=== PATIENT | female | born 1945 | race Caucasian/White ===

== ENCOUNTER 2017-08-06 12:24 | Outpatient (CLI) | payer MEDICARE ==
--- NOTE | 2017-08-06 15:21 | ULT ---
BILATERAL LOWER EXTREMITY VENOUS DUPLEX EXAM: Technique: The veins of both lower extremities were evaluated with ultrasound and doppler. Color dop pler and spectral analysis performed on the deep veins. History: Lower extremity pain and edema. FINDINGS: Deep veins of both lower extremities show normal compression and blood flow. No evidence of DVT. IMPRESSION: Negative bilateral lower extremity venous duplex exam. POS: [facility]
--- NOTE | 2017-08-06 15:35 | ULT ---
BILATERAL LOWER EXTREMITY ARTERIAL DOPPLER STUDY: Technique: Ultrasound doppler study performed of the arteries of both lower extremities. Color doppl er with spectral analysis and velocity recordings obtained. History: Hyperlipidemia. Bilateral lower extremity pain. FINDINGS: RIGHT LOWER EXTREMITY: Common femoral artery and profunda femoral show a biphasic waveform with symmetric velocities. The right superficial femoral artery reveals a monophasic waveform throughout. Popliteal shows a monophasic waveform. The anterior tip shows a monophasic to biphasic waveform. There is monophasic waveform in the posterior tip and dorsal pedis artery on the right. LEFT LOWER EXTREMITY: There is a biphasic waveform throughout all arteries of the left lower extremity which symmetric jarret ocities. IMPRESSION: Evidence of significant arterial disease in the right lower extremity below the groin with monophasi c waveforms throughout. Suggest correlation with CT angio of the abdomen and pelvis and lower extrem ities. POS: [facility]
== END 2017-08-06 12:25 | disposition home or self-care (01) ==
LOC: ULT 12:24
PROVIDERS: ATTEND Nurse Practitioner Family
DX: M79.604 Pain in right leg (principal); M79.605 Pain in left leg; E78.5 Hyperlipidemia, unspecified; I10 Essential (primary) hypertension; Z72.0 Tobacco use; R94.31 Abnormal electrocardiogram [ECG] [EKG]; R00.1 Bradycardia, unspecified; G25.81 Restless legs syndrome; I77.89 Other specified disorders of arteries and arterioles
CPT/HCPCS: 93923; 93970

== ENCOUNTER 2017-10-23 09:41 | Outpatient (CLI) | payer MEDICARE | END 2017-10-23 09:42 | disposition home or self-care (01) | LOC: BICBD 09:41 | PROVIDERS: ATTEND Nurse Practitioner Family | DX: Z78.0 Asymptomatic menopausal state (principal); M85.851 Other specified disorders of bone density and structure, right thigh; M85.852 Other specified disorders of bone density and structure, left thigh | CPT/HCPCS: 77080 ==

== ENCOUNTER 2017-11-14 08:54 | Outpatient (CLI) | payer MEDICARE ==
[2017-11-14] MEDS ORDERED: Iopamidol 370 76% 100 ML VIAL ONE (16:35)
== END 2017-11-14 08:55 | disposition home or self-care (01) ==
LOC: BICCT 08:54
PROVIDERS: ATTEND Nurse Practitioner Family
DX: R05 Cough (principal); I25.10 Atherosclerotic heart disease of native coronary artery without angina pectoris; I77.810 Thoracic aortic ectasia; I70.0 Atherosclerosis of aorta; K57.10 Diverticulosis of small intestine without perforation or abscess without bleeding; Z72.0 Tobacco use
CPT/HCPCS: 71260

== ENCOUNTER 2018-04-16 15:36 | Emergency (ER) | payer MEDICARE ==
[2018-04-16] MEDS ORDERED: traMADol HCl 50 MG TAB ONE (17:01)
--- NOTE | 2018-04-16 17:43 | CT ---
CERVICAL SPINE CT SCAN WITHOUT IV CONTRAST: 04/16/18 HISTORY: 72-year-old female with history of neck pain without associated injury. Cervical spine CT scan without IV contrast is performed. Multiple disc osteophytosis and facet arthrosis evidence for significant spondylosis. There is minima l retrolisthesis of C4 on C5 with disc osteophytosis resulting in moderate canal stenosis. Mild canal stenosis at C5-C6. Moderate to severe multilevel bilateral foraminal stenosis, particularly at C4-C5 and C5-C6. No evidence for acute fracture or facet dislocation. IMPRESSION: Cervical spondylosis with canal stenosis at C4-C5 and C5-C6 with variable severity up to moderate to severe multilevel bilateral foraminal stenosis. No acute fracture or facet dislocation. If the patient has any radiculopathy or myelopathy symptoms, followup nonemergent MRI examination is recommended. POS: [facility]
== END 2018-04-16 18:40 | disposition home or self-care (01) ==
LOC: ERS 15:36
DX: M47.892 Other spondylosis, cervical region (principal); M48.02 Spinal stenosis, cervical region; E03.9 Hypothyroidism, unspecified; E78.5 Hyperlipidemia, unspecified; I10 Essential (primary) hypertension; F17.210 Nicotine dependence, cigarettes, uncomplicated; Z79.82 Long term (current) use of aspirin; Z79.899 Other long term (current) drug therapy
CPT/HCPCS: 72125

== ENCOUNTER 2018-04-29 12:21 | Outpatient (CLI) | payer MEDICARE | END 2018-04-29 12:22 | disposition home or self-care (01) | LOC: BICMRI 12:21 | PROVIDERS: ATTEND Nurse Practitioner Family | DX: S16.1XXA Strain of muscle, fascia and tendon at neck level, initial encounter (principal); M43.6 Torticollis; M62.838 Other muscle spasm; M51.24 Other intervertebral disc displacement, thoracic region; M46.92 Unspecified inflammatory spondylopathy, cervical region; M47.892 Other spondylosis, cervical region; M99.81 Other biomechanical lesions of cervical region | CPT/HCPCS: 72141 ==

== ENCOUNTER 2018-05-20 11:04 | Outpatient (CLI) | payer MEDICARE ==
--- NOTE | 2018-05-20 12:39 | RAD ---
CHEST 2 VIEWS: HISTORY: Preoperative exam. COMPARISON: None. FINDINGS: There is atherosclerosis of the aorta. Normal cardiac silhouette. The pulmonary vessels and hilum a re normal. Costophrenic angles are clear. No mass. No consolidation. No pneumothorax or osseous a bnormalities. IMPRESSION: Atherosclerosis. POS: [facility]
== END 2018-05-20 11:05 | disposition home or self-care (01) ==
LOC: RAD-FRANK 11:04
PROVIDERS: ATTEND Nurse Practitioner Family
DX: Z01.818 Encounter for other preprocedural examination (principal); F17.200 Nicotine dependence, unspecified, uncomplicated; M48.02 Spinal stenosis, cervical region; M51.24 Other intervertebral disc displacement, thoracic region; I10 Essential (primary) hypertension; I34.0 Nonrheumatic mitral (valve) insufficiency; R94.31 Abnormal electrocardiogram [ECG] [EKG]; I70.90 Unspecified atherosclerosis
CPT/HCPCS: 36415; 71046; 80053; 85025; 85610; 85730; 86900; 86901

== ENCOUNTER 2018-06-22 08:11 | Inpatient (IN) | payer MEDICARE ==
[2018-06-19 11:21] VITALS: BMI 23.6
[2018-06-22] MEDS ORDERED: CEFAZOLIN/Water 2 GM/20 ML SYRINGE ONE ×2 (09:49→13:25)
[2018-06-22 09:50] LABS: #Basophils 0.1 thou/uL (0.0-0.2); #Eosinphils 0.2 thou/uL (0.0-0.7); #Lymphocytes 1.7 thou/uL (1.20-3.40); #Monocytes 0.6 thou/uL (0.11-0.59); #Neutrophils 4.7 thou/uL (1.40-6.50); %Basophils 0.8 % (0.0-1.0); %Eosinophils 2.3 % (0.0-10.0); %Lymphocytes 23.7 % (21.0-51.0); %Monocytes 7.8 % (0.0-10.0); %Neutrophils 65.5 % (42.0-75.0); Hemoglobin 13.7 g/dL (12.0-16.0); Mean Corpuscular HGB CONC 32.9 g/dL (32.0-36.0); Mean Corpuscular Hemoglobin 30.2 pg (27.0-31.0); Mean Corpuscular Volume 91.8 fL (78.0-98.0); Mean Platelet Volume 8.5 fL (7.4-10.4); Platelet Count 344 thou/uL (130-400); Red Blood Cell (RBC) Count 4.53 mill/uL (4.20-5.40); White Blood Cell (WBC) Count 7.2 thou/uL (4.8-10.8)
[2018-06-22 10:10] LABS: Anion Gap 19 mmol/L (10-20); BUN (Urea Nitrogen) 17 mg/dL (9.8-20.1); Calc. Creatinine Clearance 53 mL/min (70-130); Calcium 10.5 mg/dL (7.8-10.44); Carbon Dioxide 25 mmol/L (23-31); Chloride 104 mmol/L (98-107); Estimated GFR-MDRD 64; Glucose 106 mg/dL (83-110); Potassium 3.6 mmol/L (3.5-5.1); Sodium 144 mmol/L (136-145)
[2018-06-22 10:14] LABS: PTT 34.2 SEC (22.9-36.1); Prothrombin Time 13.4 SEC (12.0-14.7)
[2018-06-22] MEDS ORDERED: Dexamethasone 20 MG/5 ML VIAL ONE (11:36)
[2018-06-22] MEDS ORDERED: Glycopyrrolate 0.2 MG/ML 5 ML SYRINGE ONE (11:36)
[2018-06-22] MEDS ORDERED: PROPOFOL 200 MG/20 ML VIAL ONE (11:36)
[2018-06-22] MEDS ORDERED: Metoclopramide HCl 10 MG/2 ML VIAL ONE (11:36)
[2018-06-22] MEDS ORDERED: Lidocaine 1% PF 5 ML VIAL ONE (11:36)
[2018-06-22] MEDS ORDERED: Ondansetron HCl/PF 4 MG/2 ML Vial ONE (11:36)
[2018-06-22] MEDS ORDERED: Fentanyl 100 MCG/2 ML VIAL ONE ×4 (11:50→15:11)
[2018-06-22] MEDS ORDERED: Sodium Chloride 0.9% 10 ML ONE (13:17)
[2018-06-22] MEDS ORDERED: Ondansetron HCl/PF 4 MG/2 ML Vial IVP PRN ×2 (14:49→15:17)
[2018-06-22] MEDS ORDERED: Ketorolac Tromethamine 30 MG/ML VIAL IVP PRN (14:49)
--- NOTE | 2018-06-22 15:07 | OP ---
DATE OF OPERATION: 06/22/2018 SURGEON: Erick Grimaldo M.D. SEAM PRESSER: Yana Garcia PROCEDURES PERFORMED: Anterior cervical discectomy C4-5 and C5-6, interbody arthrodesis, intraverteb ral biomechanical device, local morselized autograft, demineralized bone matrix, anterior titanium in strumentation C4-5 and C5-6. PROCEDURE IN DETAIL: The patient was brought into the operating room and intubated. We positioned t he patient on the table and using the fluoroscope tried to plan a trajectory to approach T1-2 and fou nd it to be 2 angled away from the clavicle, inferiorly to be adequately able to access from an anter ior approach. We therefore performed a standard approach to the C4-5 and C5-6 levels. These were id entified with x-ray. Anterior osteophytes were debrided. Distraction was placed between C4 and C6 a nd using the operating microscope and microdissection techniques, the disks were removed included the spinal cord completely decompressed. The bony endplates were then decorticated for the purpose of a rthrodesis and appropriately sized intravertebral biomechanical PEEK devices were brought into the fi eld, filled with demineralized bone matrix and local morselized autograft, and tapped into place secu rely at C4-5 and C5-6. Next, an anterior plate was brought in the field and secured to C5, and C6 us ing two 14 mm screws at each level. The wound was then extensively irrigated, immaculate hemostasis was secured, and the wound was closed in anatomic layers.
[2018-06-22] MEDS ORDERED: Mag-Al 1200 mg/1200 mg/30 ML UDCUP PO PRN (15:14)
[2018-06-22] MEDS ORDERED: HYDROcodone/Acetaminophen 10/325 mg Tablet PO PRN ×2 (15:14)
[2018-06-22] MEDS ORDERED: Promethazine HCl 25 MG/ML VIAL IM PRN (15:14)
[2018-06-22] MEDS ORDERED: Cyclobenzaprine 10 MG TAB PO PRN (15:14)
[2018-06-22] MEDS ORDERED: Promethazine HCl 12.5 MG SUPP PR PRN (15:14)
[2018-06-22] MEDS ORDERED: diphenhydrAMINE 50 MG/ML VIAL IVP PRN (15:14)
[2018-06-22] MEDS ORDERED: diphenhydrAMINE 25 MG CAP PO PRN (15:14)
[2018-06-22] MEDS ORDERED: Morphine 4 MG/ML Carpuject SLOW IVP PRN (15:14)
[2018-06-22] MEDS ORDERED: Promethazine 25 MG TAB PO PRN (15:14)
[2018-06-22] MEDS ORDERED: traMADol HCl 50 MG TAB PO PRN (15:14)
[2018-06-22] MEDS ORDERED: Milk Of Magnesia 30 ML UDCUP PO PRN (15:14)
[2018-06-22] MEDS ORDERED: Morphine 4 MG/ML VIAL SLOW IVP PRN (15:22)
--- NOTE | 2018-06-22 17:42 | CON ---
DATE OF CONSULTATION: 06/22/2018 PRIMARY CARE PHYSICIAN: Ms. Radha Alcaraz. REQUESTING PHYSICIAN: Erick Grimaldo M.D. REASON FOR CONSULTATION: Medical management, postop ACDF and laminectomy of the cervical/upper thora cic spine for management of hypertension, hyperlipidemia, moderate mitral regurg, peripheral vascular disease, and hypothyroidism. HISTORY OF PRESENT ILLNESS: Ms. Hinojosa is a 73-year-old white female with the above history who pr esents to the postsurgical cody status post anterior cervical diskectomy and fusion C4-5 and C5-6 int erbody arthrodesis and intervertebral biomechanical device, local morselized autograft, demineralized bone matrix, anterior titanium instrumentation C4-5 and C5-6. There were no noted intraoperative complications. Postoperatively, she is doing well and is on the f syed. We were asked to consult for medical management. She denies any fevers or chills, no chest pa in or shortness of breath. No nausea or vomiting. No diarrhea or constipation. No appetite present . Pain is fairly well controlled. PAST MEDICAL HISTORY: 1. Hypertension. 2. Hyperlipidemia. 3. Peripheral vascular disease. 4. Mitral valve regurgitation, moderate. 5. Hypothyroidism. 6. History of hepatitis 40 years ago. 7. Chronic neck and back pain. 8. Ongoing tobacco abuse. PAST SURGICAL HISTORY: 1. AFRO in the left leg on 01/2018 and into the right leg on 02/2018. 2. Bilateral intraocular lens insertion on 01/2011. 3. Low back surgery on 07/2012. 4. Hemorrhoidectomy on 07/2001. 5. Hysterectomy on 12/22/1972. 6. Cholecystectomy on 01/1970. HOME MEDICATIONS: 1. Norvasc 10 mg daily. 2. Aspirin 81 mg daily. 3. Lipitor 10 mg at bedtime. 4. Plavix 75 mg daily. 5. Gabapentin 600 mg p.o. at bedtime. 6. Gemfibrozil 600 mg p.o. b.i.d. 7. Levothyroxine 75 mcg daily. 8. Losartan 25 mg daily. 9. KCl 20 mEq p.o. at bedtime. 10. Tramadol 50 mg 1-2 tabs p.o. daily. 11. Maxzide 37.5/25 daily. ALLERGIES: NKDA. FAMILY HISTORY: Hypertension, stroke, and multiple cancers. SOCIAL HISTORY: She does smoke. Social alcohol. No IV drug history. REVIEW OF SYSTEMS: All systems reviewed and negative except stated as per HPI. PHYSICAL EXAMINATION: VITAL SIGNS: Temperature 98.0, pulse 67, blood pressure is 168/69, respiratory rate 18, satting 94% on room air. GENERAL: Awake, alert, oriented x3, well-developed, well-nourished, white female, appears in no acut e distress. She is somewhat somnolent. HEENT: Normocephalic, atraumatic. Pupils are equal, reactive bilaterally. Mucous membranes are will st. NECK: Not examined. She has anterior cervical dressing that is intact without any strike through. LUNGS: Clear to auscultation bilaterally. No wheezes, no rales or rhonchi with good air movement. Symmetrical chest excursion. CARDIOVASCULAR: Normal S1 and S2. No S3 or S4. Does have a holosystolic murmur best heard at the a pex. ABDOMEN: Soft, is nontender, nondistended, no mass or organomegaly. No rebound, rigidity or guardin g. EXTREMITIES: No signs of clubbing with trace pedal edema. SKIN: Warm, moist, and well perfused. She has no rashes or lesions. MUSCULOSKELETAL: Normal to inspection. Large joints appear normal. There is no evidence of inflamm ation or palpable effusions. NEUROLOGIC: Cranial nerves II-XII are grossly intact with no focal deficits and normal speech patter n. LABORATORY DATA: CBC showed a white count of 7.2, hemoglobin 13.7, hematocrit 41.5, and platelet cou nt 344,000. Normal differential. INR is 1.0. Chemistry profile shows sodium 144, potassium 3.6, chloride 104, bicarb 25, BUN 17, creatinine 0.87, glucose of 106, calcium slightly elevated at 10.5. ASSESSMENT AND PLAN: 1. Hypertension. 2. Hyperlipidemia. 3. Hypothyroidism. 4. Peripheral vascular disease. 5. Peripheral neuropathy. Continue home antihypertensives, pain management per the Neurosurgical Team. We will hold off on asp irin and Plavix for the time being until the Neurosurgery feels like it safe to restart this. We moustapha l continue her thyroid medication. Follow along with you.
[2018-06-22] MEDS: tiZANidine HCl 4 MG TAB PO PRN (17:58)
[2018-06-22] MEDS: Gemfibrozil 600 MG TAB PO SCH (17:59)
[2018-06-22] MEDS: Sodium Chloride 0.9% 1,000 ML IV SCH (18:15)
[2018-06-22] MEDS: traMADol HCl 50 MG TAB PO PRN (18:39)
[2018-06-22] MEDS ORDERED: Atorvastatin Calcium 10 MG TAB PO SCH (21:00)
[2018-06-22] MEDS ORDERED: Gabapentin 300 MG CAP PO SCH (21:00)
[2018-06-22] MEDS ORDERED: Potassium Chloride 20 MEQ TAB PO SCH (21:00)
[2018-06-22] MEDS: CEFAZOLIN/Water 2 GM/20 ML SYRINGE SLOW IVP SCH (21:56)
[2018-06-23] MEDS: tiZANidine HCl 4 MG TAB PO PRN ×2 (03:03→10:00)
[2018-06-23] MEDS: Sodium Chloride 0.9% 1,000 ML IV SCH (05:35)
[2018-06-23] MEDS: CEFAZOLIN/Water 2 GM/20 ML SYRINGE SLOW IVP SCH (05:35)
[2018-06-23] MEDS ORDERED: Levothyroxine Sodium 75 MCG TAB PO SCH (06:00)
--- NOTE | 2018-06-23 07:02 | DIS ---
DATE OF ADMISSION: 06/22/2018 DATE OF DISCHARGE: 06/23/2018 ATTENDING PHYSICIAN: Dr. Erick Grimaldo. HOSPITAL COURSE: The patient is a 73-year-old female known to us for evaluation for neck discomfort and balance difficulty. She was found to have significant degenerative changes in cervical stenosis at C4-C6 and also herniated disk and T1-T2. She underwent C4-C6 ACDF on 06/22/2018. We considered also T1-T2 ACDF; however, this was unable to be completed at the same time. Following her surgery, her pain was well controlled with p.o. medications, she was tolerating regular diet, and she was voiding appropriately. She has been ambulatory throughout the department. She is comfortable, NAD 5/5 strength thoughout. Sensation intact to light touch. No reflex asx. Her dressing is dry and her incision is soft. We will plan to dismiss to home. I will plan to follow up the patient with approximately 2 weeks. I have provided her with prescriptions for Tylenol #4 and Zanaflex. I have discussed home care precautions. Please reach out to Neurosurgery for additional questions or concerns. BOBBY
[2018-06-23] MEDS: Gemfibrozil 600 MG TAB PO SCH (07:07)
[2018-06-23 08:01] VITALS: BP 132/63; TEMP 97.9
[2018-06-23] MEDS: traMADol HCl 50 MG TAB PO PRN (08:41)
[2018-06-23] MEDS ORDERED: Losartan 25 MG TAB PO SCH (09:00)
[2018-06-23] MEDS ORDERED: Amlodipine 10 MG TAB PO SCH (09:00)
[2018-06-23] MEDS ORDERED: Triamterene/Hydrochlorothiazide 37.5 mg/25 mg Tablet PO SCH (09:00)
--- NOTE | 2018-06-23 10:44 | PDOC.PN ---
- Subjective Encounter Start Date: 06/23/18 Encounter Start Time: 10:43 no events, vitals stable, going home today, no new complaints denies f/C, no N/V/d/C, no Cp or sOB all systems reviewed and neg x as above - Objective Resuscitation Status: Resuscitation Status FULL:Full Resuscitation MAR Reviewed: Yes Vital Signs & Weight: Vital Signs (12 hours) Temp Pulse Resp BP BP Pulse Ox 06/23/18 08:40 63 132/63 06/23/18 07:59 97.9 F 63 16 132/63 93 L 06/23/18 04:22 97.6 F 61 18 137/67 92 L 06/23/18 00:27 97.7 F 73 18 169/70 H 95 Weight Weight 129 lb I&O: 06/22/18 06/23/18 06/24/18 06:59 06:59 06:59 Intake Total 300 Balance 300 Result Diagrams: 06/22/18 09:37 06/22/18 09:37 Phys Exam - Physical Examination Constitutional: NAD HEENT: PERRLA, moist MMs, sclera anicteric, oral pharynx no lesions Neck: no nodes, no JVD, supple, full ROM Respiratory: no wheezing, no rales, no rhonchi, clear to auscultation bilateral Cardiovascular: RRR, no significant murmur, no rub Gastrointestinal: soft, non-tender, no distention, positive bowel sounds Musculoskeletal: no edema Neurological: non-focal, normal sensation, moves all 4 limbs Lymphatic: no nodes Psychiatric: normal affect, A&O x 3 Skin: no rash, normal turgor, cap refill <2 seconds Dx/Plan (1) HTN (hypertension) Code(s): I10 - ESSENTIAL (PRIMARY) HYPERTENSION Status: Chronic Qualifiers: Hypertension type: essential hypertension Qualified Code(s): I10 - Essential (primary) hypertension (2) PVD (peripheral vascular disease) Code(s): I73.9 - PERIPHERAL VASCULAR DISEASE, UNSPECIFIED Status: Chronic (3) Hypothyroidism Code(s): E03.9 - HYPOTHYROIDISM, UNSPECIFIED Status: Chronic Qualifiers: Hypothyroidism type: acquired Qualified Code(s): E03.9 - Hypothyroidism, unspecified (4) Cervical disc disease Code(s): M50.90 - CERVICAL DISC DISORDER, UNSP, UNSPECIFIED CERVICAL REGION Status: Chronic - Plan * . stable medically, resume home meds. discharge per primary team
--- NOTE | 2018-06-28 14:26 | EKG ---
Test Reason : PREOP Blood Pressure : / mmHG Vent. Rate : 058 BPM Atrial Rate : 058 BPM P-R Int : 192 ms QRS Dur : 096 ms QT Int : 456 ms P-R-T Axes : 052 -03 155 degrees QTc Int : 447 ms Sinus bradycardia Left ventricular hypertrophy with repolarization abnormality Abnormal ECG When compared with ECG of 06-JUL-2010 09:00, No significant change was found Confirmed by MICHAEL DOYLE (2) on 06/28/2018 2:25:22 PM Referred By: ALAINA Confirmed By:MICHAEL DOYLE
== END 2018-06-23 11:30 | disposition home or self-care (01) | DRG 473 ==
LOC: SURG A 08:48
PROVIDERS: ADMIT Neurological Surgery; ATTEND Neurological Surgery
PROC: 0RG20A0 Fusion of 2 or more Cervical Vertebral Joints with Interbody Fusion Device, Anterior Approach, Anterior Column, Open Approach (ICD-10-PCS; principal; 2018-06-22)
PROC: 0RB30ZZ Excision of Cervical Vertebral Disc, Open Approach (ICD-10-PCS; 2018-06-22)
DX: M48.02 Spinal stenosis, cervical region (principal); M51.24 Other intervertebral disc displacement, thoracic region; I10 Essential (primary) hypertension; E78.5 Hyperlipidemia, unspecified; I34.0 Nonrheumatic mitral (valve) insufficiency; I73.9 Peripheral vascular disease, unspecified; E03.9 Hypothyroidism, unspecified; G89.29 Other chronic pain; Z72.0 Tobacco use; Z90.49 Acquired absence of other specified parts of digestive tract; Z90.710 Acquired absence of both cervix and uterus; Z79.82 Long term (current) use of aspirin; Z79.02 Long term (current) use of antithrombotics/antiplatelets; G62.9 Polyneuropathy, unspecified
CPT/HCPCS: 36415; 76001; 80048; 85025; 85610; 85730; 93005; 93010; A4216; C1713; C1776; J0131; J1100; J2001; J2405; J2704; J2765; J3010; J3490

== ENCOUNTER 2018-07-04 19:18 | Inpatient (IN) | payer MEDICARE ==
[2018-07-04 20:09] LABS: #Eosinphils 0.1 thou/uL (0.0-0.7); #Lymphocytes 2.5 thou/uL (1.20-3.40); #Monocytes 1.2 thou/uL (0.11-0.59); #Neutrophils 15.7 thou/uL (1.40-6.50); %Basophils 0.2 % (0.0-1.0); %Eosinophils 0.7 % (0.0-10.0); %Lymphocytes 12.8 % (21.0-51.0); %Monocytes 6.3 % (0.0-10.0); %Neutrophils 80.1 % (42.0-75.0); Hemoglobin 14.7 g/dL (12.0-16.0); Mean Corpuscular HGB CONC 33.3 g/dL (32.0-36.0); Mean Corpuscular Hemoglobin 29.9 pg (27.0-31.0); Mean Corpuscular Volume 89.6 fL (78.0-98.0); Mean Platelet Volume 8.4 fL (7.4-10.4); Platelet Count 465 thou/uL (130-400); Red Blood Cell (RBC) Count 4.91 mill/uL (4.20-5.40); White Blood Cell (WBC) Count 19.6 thou/uL (4.8-10.8)
--- NOTE | 2018-07-04 20:26 | RAD ---
RADIOGRAPH CHEST 2 VIEWS: 07/04/18 HISTORY: 73-year-old female status post acute chest trauma from fall. FINDINGS: There is no air space density, pulmonary edema, pleural effusion, pneumothorax, or cardiomegaly. IMPRESSION: No acute cardiopulmonary findings. chemo [] POS: [facility]
[2018-07-04 20:31] LABS: Magnesium 2.5 mg/dL (1.6-2.6)
[2018-07-04 20:33] LABS: ALT (SGPT) 10 U/L (8-55); AST (SGOT) 25 U/L (5-34); Albumin 4.2 g/dL (3.4-4.8); Alkaline Phosphatase 153 U/L (40-150); Anion Gap 18 mmol/L (10-20); BUN (Urea Nitrogen) 52 mg/dL (9.8-20.1); Bilirubin, Total 0.4 mg/dL (0.2-1.2); CK (CPK) 49 U/L (29-168); Calc. Creatinine Clearance 0 mL/min (70-130); Calcium 9.7 mg/dL (7.8-10.44); Carbon Dioxide 28 mmol/L (23-31); Chloride 96 mmol/L (98-107); Estimated GFR-MDRD 29; Globulin 3.7 g/dL (2.4-3.5); Glucose 115 mg/dL (83-110); Protein, Total 7.9 g/dL (6.0-8.3); Sodium 139 mmol/L (136-145)
[2018-07-04] MEDS ORDERED: Meclizine HCl 25 MG TAB ONE (20:35)
[2018-07-04] MEDS ORDERED: Fentanyl 100 MCG/2 ML VIAL ONE (20:35)
[2018-07-04 20:37] LABS: Troponin I 0.109 ng/mL (< 0.028)
[2018-07-04] MEDS ORDERED: Magnesium Sulfate 2 GM in Sodium Chloride 0.9% 100 ML IVPB SCH (21:15)
[2018-07-04] MEDS ORDERED: Enoxaparin Sodium 60 MG/0.6 ML SYRINGE ONE (21:24)
[2018-07-04] MEDS ORDERED: Potassium Chloride 20 MEQ TAB ONE (21:24)
--- NOTE | 2018-07-04 21:47 | CT ---
CT BRAIN WITHOUT CONTRAST: 07/04/18 HISTORY: Fall, syncope. FINDINGS: No evidence of acute infarct, hemorrhage, midline shift or abnormal extra-axial fluid collections are seen. The ventricular size is appropriate and the basilar cisterns patent. A small focal hypodensity in the right caudate head is likely an old infarct. The bony calvarium is intact. The visualized par anasal sinuses and mastoid air cells are well aerated. IMPRESSION: No CT evidence of acute intracranial process. POS: [facility]
--- NOTE | 2018-07-04 22:15 | CT ---
CT NECK SOFT TISSUES NONCONTRAST 07/04/18 at 9:36 p.m. HISTORY: 73-year-old female with dysphagia. Rule out postoperative abscess. FINDINGS: This study was performed without IV contrast, because of low GFR of 29. Lack of IV contrast significa ntly decreases the sensitivity for the detection of abscess. There is ACDF hardware at C4-5-6. There is mild prevertebral soft tissue stranding and edema. In the right paraesophageal/retroesophageal re gion at the level of the esophagopharyngeal junction at the T6-7 junction, there is ill-defined fluid or soft tissue density material, containing gas (axial images 69 through 71 of 100, series 2). The l arynx is unremarkable. Within the limitations of a noncontrast scan, no gross pathology is identified involving the parapharyngeal, submandibular, posterior cervical, parotid, and manager instrumentation, spaces. Th ere is heavy atherosclerotic calcification of the bilateral carotid bulbs. IMPRESSION: 1. Status post recent anterior cervical discectomy and fusion, with hardware. 2. Small collection of fluid with gas in the space between the right side of the pharyngoesophag eal junction and the C7-T1 vertebral bodies. This is presumably in the path of the surgical approach for the ACDF. This soon after surgery, it is very difficult to determine whether this is an expected normal small postoperative hematoma and residual gas, or represents an abscess. POS: [facility]
[2018-07-04] MEDS ORDERED: Ondansetron HCl/PF 4 MG/2 ML Vial IVP PRN (23:08)
[2018-07-04 23:17] LABS: Troponin I 0.092 ng/mL (< 0.028)
[2018-07-05] MEDS: Sodium Chloride 0.9% 1,000 ML IV SCH ×2 (00:14→13:47)
[2018-07-05] MEDS ORDERED: traMADol HCl 50 MG TAB PO PRN (02:12)
[2018-07-05 02:29] LABS: Troponin I 0.069 ng/mL (< 0.028)
[2018-07-05] MEDS ORDERED: Gabapentin 300 MG CAP PO SCH (03:00)
[2018-07-05] MEDS: Acetaminophen 325 MG TAB PO PRN ×2 (03:44→15:18)
[2018-07-05 05:17] LABS: #Basophils 0.1 thou/uL (0.0-0.2); #Eosinphils 0.2 thou/uL (0.0-0.7); #Lymphocytes 2.6 thou/uL (1.20-3.40); #Monocytes 0.9 thou/uL (0.11-0.59); #Neutrophils 9.7 thou/uL (1.40-6.50); %Basophils 0.4 % (0.0-1.0); %Eosinophils 1.3 % (0.0-10.0); %Lymphocytes 19.4 % (21.0-51.0); %Monocytes 6.8 % (0.0-10.0); %Neutrophils 72.1 % (42.0-75.0); Hemoglobin 12.3 g/dL (12.0-16.0); Mean Corpuscular Hemoglobin 29.8 pg (27.0-31.0); Mean Corpuscular Volume 90.3 fL (78.0-98.0); Mean Platelet Volume 8.4 fL (7.4-10.4); Platelet Count 349 thou/uL (130-400); RBC Distribution Width 13.9 % (11.5-14.5); Red Blood Cell (RBC) Count 4.13 mill/uL (4.20-5.40); White Blood Cell (WBC) Count 13.5 thou/uL (4.8-10.8)
[2018-07-05 05:36] LABS: Anion Gap 13 mmol/L (10-20); BUN (Urea Nitrogen) 42 mg/dL (9.8-20.1); Calc. Creatinine Clearance 43 mL/min (70-130); Calcium 8.5 mg/dL (7.8-10.44); Carbon Dioxide 28 mmol/L (23-31); Chloride 100 mmol/L (98-107); Estimated GFR-MDRD 53; Glucose 107 mg/dL (83-110); Sodium 138 mmol/L (136-145)
[2018-07-05 05:44] LABS: Potassium 2.8 mmol/L (3.5-5.1)
[2018-07-05] MEDS: Levothyroxine Sodium 75 MCG TAB PO SCH (06:40)
[2018-07-05] MEDS: Potassium Chloride 20 MEQ TAB PO SCH ×3 (06:41→20:14)
[2018-07-05] MEDS ORDERED: Aspirin 325 MG TAB PO SCH (08:00)
[2018-07-05] MEDS: Gemfibrozil 600 MG TAB PO SCH ×2 (09:41→17:52)
[2018-07-05] MEDS: Calcium Carbonate + Vit D 1 TAB PO SCH (09:42)
[2018-07-05] MEDS: Amlodipine 5 MG TAB PO SCH (09:42)
[2018-07-05] MEDS: Losartan 25 MG TAB PO SCH (09:42)
[2018-07-05] MEDS: Fish Oil 1,000 MG CAP PO SCH (09:42)
[2018-07-05] MEDS: Triamterene/Hydrochlorothiazide 37.5 mg/25 mg Tablet PO SCH (09:42)
[2018-07-05] MEDS: Ubidecarenone 50 MG CAP PO SCH (09:42)
--- NOTE | 2018-07-05 09:43 | CON ---
DATE OF CONSULTATION: 07/05/2018 REASON FOR CONSULTATION: Syncope. PRIMARY CUSHION WORKER: Clark Hazel M.D. HISTORY OF PRESENT ILLNESS: Ms. Hinojosa is a very pleasant 73-year-old white female, who comes to [facility] for syncope. She is very well known to myself. She has had a full evaluation of her hea rt. She has had a heart catheterization that showed only mild coronary artery disease and she does h ave significant peripheral vascular disease with intervention more recently to the legs. She comes i n as she had neck surgery about [address] Grimaldo, and since her surgery, she has had a l ot of dysphagia. It is common to have dysphagia after this type of surgery after discussion with Osvaldo tucker and this is not something unexpected, but she tells me that for the last 7 or 8 days and sh e has not really been able to keep much of anything down. She has also been a little bit constipated in the last few days, but this has resolved since. She said she was very lightheaded, felt dizzy, a nd fell forward and landed on her chest. She did not hit her head. She is not sure of what exactly happened. She feels she may have passed out, but is not sure. She also has noticed some fullness fo r years since the surgery. PAST MEDICAL HISTORY: 1. Hypertension. 2. Hyperlipidemia. 3. Peripheral vascular disease. 4. Moderate MR. 5. Hypothyroidism. 6. Hepatitis at 40 years old. 7. Chronic neck and back pain. 8. Tobacco abuse. 9. Mild coronary arteries. PAST SURGICAL HISTORY: 1. Left leg intervention in January of this year and right leg in February of this year. 2. Bilateral intraocular lens insertion in 2010. 3. Back surgery. 4. Hemorrhoidectomy. 5. Hysterectomy. 6. Cholecystectomy. OUTPATIENT MEDICATIONS: Include: 1. Gabapentin. 2. Tramadol. 3. Co-Q10. 4. Calcium/vitamin D. 5. Fish oil. 6. Triamterene/hydrochlorothiazide 37.5/25 mg daily. 7. Potassium chloride 20 mEq at bedtime. 8. Cozaar 25 mg a day. 9. Levothyroxine 75 mcg a day. 10. Gemfibrozil 600 mg b.i.d. 11. Atorvastatin 10 mg at bedtime. 12. Amlodipine 5 mg a day. FAMILY HISTORY: Noncontributory. SOCIAL HISTORY: Continues to smoke, social alcohol use, no drug use. ALLERGIES: No known drug allergies. REVIEW OF SYSTEMS: A 12-point review of systems was done and is all negative unless stated in the hi story of present illness. PHYSICAL EXAMINATION: VITAL SIGNS: Temperature 98.2, pulse 54, respiratory rate 16, satting 98% on room air, blood pressur e 124/58. GENERAL: Awake, alert, oriented x3, in no distress. HEENT: Normocephalic, atraumatic. NECK: Supple. LUNGS: Clear. CARDIOVASCULAR: S1 and S2, no S3 or S4. There is a very soft holosystolic murmur at the apex. ABDOMEN: Soft and positive bowel sounds. EXTREMITIES: No edema. SKIN: Warm and dry. LABORATORY WORK: Reviewed. CBC with a white count of 19 on arrival and down to 13 now, hemoglobin o f 14 and down to 12, hematocrit of 37, platelet count of 349. Coags: D-dimer was a little bit high. Chemistry with a potassium of 3.0, down to 2.8. Troponin is in the indeterminate range at 0.10, 0. 09, 0.06. BNP was 386. Creatinine was 1.72, and after IV fluids, down to 1.02. CT of the neck and brain were unremarkable. Her recent cervical diskectomy and fusion are seen with hardware. There is a small collection of fluid with gas in the space between the right side of the p harynx-esophageal junction and the C7-T1 vertebral bodies. ASSESSMENT AND PLAN: 1. Syncope: Most likely, related to her dysphagia and not being able to keep anything down for the last week. Most likely, she is dehydrated from this. I would give her IV fluids. Echocardiogram is actually being done as I am standing there and she has got a normal left ventricular function, which is the same it was before on her last echo. I would continue IV fluids, evaluate her for dysphagia, as this may recur if dysphagia is not resolved. 2. PVD, stable at this time. 3. Coronary artery disease, only mild on most recent heart catheterization. 4. Recent cervical neck surgery. Thank you for letting us to participate in the care of your patient. We will follow.
--- NOTE | 2018-07-05 10:14 | PDOC.PN ---
- Subjective Encounter Start Date: 07/05/18 Encounter Start Time: 07:20 Pt seen for followup re: syncope. Denies chest pain, shortness of breath, fevers or chills. - Objective Resuscitation Status: Resuscitation Status FULL:Full Resuscitation Vital Signs & Weight: Vital Signs (12 hours) Temp Pulse Resp BP Pulse Ox 07/05/18 07:50 98.2 F 54 L 16 124/58 L 98 07/05/18 03:35 98.1 F 54 L 16 119/58 L 94 L 07/04/18 23:40 98.0 F 55 L 16 116/56 L 96 Weight Weight 122 lb 7 oz I&O: 07/04/18 07/05/18 07/06/18 06:59 06:59 06:59 Intake Total 1170 Output Total 300 Balance 870 Result Diagrams: 07/05/18 05:01 07/05/18 05:01 Phys Exam - Physical Examination Constitutional: NAD HEENT: moist MMs, sclera anicteric, oral pharynx no lesions, 2+ tonsils Neck: no nodes, no JVD, supple, full ROM Respiratory: no wheezing, no rales, no rhonchi, clear to auscultation bilateral Cardiovascular: RRR, no rub S1, S2 Gastrointestinal: soft, non-tender, no distention, positive bowel sounds Neurological: moves all 4 limbs Psychiatric: normal affect, A&O x 3 Dx/Plan (1) Syncope Code(s): R55 - SYNCOPE AND COLLAPSE Status: Acute Comment: Continue to monitor on telemetry. CTA to r/o PE. Check urinalysis to r/o infection. Check orthostatic vitals. (2) Hypokalemia Code(s): E87.6 - HYPOKALEMIA Status: Acute Comment: replace potassium, recheck (3) HTN (hypertension) Code(s): I10 - ESSENTIAL (PRIMARY) HYPERTENSION Status: Chronic Qualifiers: Hypertension type: essential hypertension Qualified Code(s): I10 - Essential (primary) hypertension Comment: controlled (4) Hypothyroidism Code(s): E03.9 - HYPOTHYROIDISM, UNSPECIFIED Status: Chronic Qualifiers: Hypothyroidism type: acquired Qualified Code(s): E03.9 - Hypothyroidism, unspecified Comment: check TSH, continue synthroid (5) JODI (acute kidney injury) Code(s): N17.9 - ACUTE KIDNEY FAILURE, UNSPECIFIED Status: Resolved - Plan * . recent surgery by neurosurgery service, no evidence of surgical site infection per neurosurgery service. Review of Systems - Review of Systems Constitutional: negative: fever, chills, sweats, weakness, malaise Respiratory: negative: Cough, Shortness of Breath, SOB with Excertion, Pleuritic Pain, Wheezing Cardiovascular: negative: chest pain, palpitations, orthopnea, paroxysmal nocturnal dyspnea, edema, light headedness Gastrointestinal: Other (difficulty swallowing). negative: Nausea, Vomiting, Abdominal Pain, Diarrhea, Constipation, Melena, Hematochezia Genitourinary: negative: Dysuria, Frequency, Incontinence, Hematuria, Retention - Medications/Allergies Allergies/Adverse Reactions: Allergies Allergy/AdvReac Type Severity Reaction Status Date / Time acetaminophen [From [place]] Allergy Verified 07/05/18 00:00 hydrocodone [From [place]] Allergy Verified 07/05/18 00:00 Medications: Current Medications Acetaminophen (Tylenol) 650 mg PO Q4H PRN PRN Reason: Headache/Fever or Pain Last Admin: 07/05/18 03:44 Dose: 650 mg Amlodipine Besylate (Norvasc) 5 mg PO DAILY [facility] Last Admin: 07/05/18 09:42 Dose: 5 mg Aspirin (Aspirin) 325 mg PO QAM-WM [facility] Stop: 07/05/18 12:24 Last Admin: 07/05/18 09:41 Dose: 325 mg Atorvastatin Calcium (Lipitor) 10 mg PO [facility] Calcium/Vitamin D (Caltrate 600 + Vit D) 1 tab PO DAILY [facility] Last Admin: 07/05/18 09:42 Dose: 1 tab Coenzyme Q10 (Coenzyme Q10) 100 mg PO DAILY [facility] Last Admin: 07/05/18 09:42 Dose: 100 mg Fish Oil (Fish Oil) 1,000 mg PO DAILY [facility] Last Admin: 07/05/18 09:42 Dose: 1,000 mg Gabapentin (Neurontin) 600 mg PO [facility] Gemfibrozil (Lopid) 600 mg PO BID-AC [facility] Last Admin: 07/05/18 09:41 Dose: 600 mg Sodium Chloride (Normal Saline 0.9%) 1,000 mls @ 75 mls/hr IV .[id number] [facility] Last Admin: 07/05/18 00:14 Dose: 1,000 mls Levothyroxine Sodium (Synthroid) 75 mcg PO 0600 [facility] Last Admin: 07/05/18 06:40 Dose: 75 mcg Losartan Potassium (Cozaar) 25 mg PO DAILY [facility] Last Admin: 07/05/18 09:42 Dose: 25 mg Ondansetron HCl (Zofran) 4 mg IVP Q6H PRN PRN Reason: Nausea/Vomiting Potassium Chloride (K-Dur) 20 meq PO HS [facility] Sodium Chloride (Flush - Normal Saline) 10 ml IVF PRN PRN PRN Reason: Saline Flush Tramadol HCl (Ultram) 50 mg PO BID PRN PRN Reason: Pain 4-6 Triamterene/HCTZ (Maxzide-25) 1 tab PO QAM [facility] Last Admin: 07/05/18 09:42 Dose: 1 tab
[2018-07-05] MEDS ORDERED: ISOVUE-370 76%-LOCM 1 ML ONE (11:11)
--- NOTE | 2018-07-05 11:55 | CT ---
CT PULMONARY ANGIOGRAM WITH IV CONTRAST AND 3D POSTPROCESSING: Date: 07/05/18 HISTORY: Chest pain. Difficulty breathing. FINDINGS: There is good contrast opacification of the pulmonary arterial vasculature without filling defects to suggest pulmonary embolism. The thoracic aorta is well opacified without aneurysm or dissection. No pleural or pericardial effusions are seen. There are dependent changes in the lung bases. No pneumoth oraces or lobar consolidation are identified. No pulmonary nodules or masses seen. There are degenera tive changes in the spine. IMPRESSION: No CT evidence of pulmonary embolism. POS: [facility]
[2018-07-05 13:18] LABS: Bilirubin Negative (Negative); Blood, Urine Negative (Negative); Clarity CLEAR (Clear); Glucose, Urine (Dipstick) Negative (Negative); Leukocyte Negative (Negative); Nitrite Negative (Negative); Protein, Urine (Dipstick) Negative (Neg-Trace); Specific Gravity, Urine 1.034 (1.002-1.036); pH, Urine 6.5 (5.0-9.0)
[2018-07-05] MEDS: traMADol HCl 50 MG TAB PO PRN (15:18)
[2018-07-05] MEDS ORDERED: Meclizine HCl 25 MG TAB PO PRN (17:36)
[2018-07-05] MEDS: Morphine 2 MG/ML SYRINGE SLOW IVP PRN (17:53)
[2018-07-05] MEDS: Atorvastatin Calcium 10 MG TAB PO SCH (20:13)
[2018-07-05] MEDS: Gabapentin 300 MG CAP PO SCH (20:14)
[2018-07-06] MEDS ORDERED: Docusate 100 MG CAP PO PRN (00:46)
[2018-07-06] MEDS: Morphine 2 MG/ML SYRINGE SLOW IVP PRN ×3 (01:33→20:16)
[2018-07-06 05:10] LABS: #Eosinphils 0.2 thou/uL (0.0-0.7); #Monocytes 0.7 thou/uL (0.11-0.59); %Basophils 0.2 % (0.0-1.0); %Eosinophils 2.2 % (0.0-10.0); %Lymphocytes 22.7 % (21.0-51.0); %Neutrophils 66.9 % (42.0-75.0); Mean Corpuscular HGB CONC 31.9 g/dL (32.0-36.0); Mean Corpuscular Hemoglobin 29.4 pg (27.0-31.0); Mean Platelet Volume 8.6 fL (7.4-10.4); Platelet Count 268 thou/uL (130-400); RBC Distribution Width 13.9 % (11.5-14.5); Red Blood Cell (RBC) Count 3.75 mill/uL (4.20-5.40); White Blood Cell (WBC) Count 8.9 thou/uL (4.8-10.8)
[2018-07-06 05:27] LABS: Anion Gap 11 mmol/L (10-20); BUN (Urea Nitrogen) 18 mg/dL (9.8-20.1); Calc. Creatinine Clearance 62 mL/min (70-130); Calcium 8.2 mg/dL (7.8-10.44); Carbon Dioxide 27 mmol/L (23-31); Chloride 103 mmol/L (98-107); Estimated GFR-MDRD 81; Glucose 82 mg/dL (83-110); Sodium 138 mmol/L (136-145)
[2018-07-06 05:29] LABS: Potassium 2.9 mmol/L (3.5-5.1)
[2018-07-06] MEDS: Sodium Chloride 0.9% 1,000 ML IV SCH ×2 (05:50→19:07)
[2018-07-06] MEDS: Levothyroxine Sodium 75 MCG TAB PO SCH (05:50)
[2018-07-06] MEDS: Potassium Chloride 20 MEQ TAB PO SCH ×3 (06:46→20:11)
[2018-07-06] MEDS: Gemfibrozil 600 MG TAB PO SCH ×3 (08:14→16:25)
[2018-07-06] MEDS: Calcium Carbonate + Vit D 1 TAB PO SCH (08:14)
[2018-07-06] MEDS: Amlodipine 5 MG TAB PO SCH (08:14)
[2018-07-06] MEDS: Fish Oil 1,000 MG CAP PO SCH (08:15)
[2018-07-06] MEDS: Losartan 25 MG TAB PO SCH (08:15)
[2018-07-06] MEDS: Triamterene/Hydrochlorothiazide 37.5 mg/25 mg Tablet PO SCH (08:15)
[2018-07-06] MEDS: Ubidecarenone 50 MG CAP PO SCH (08:15)
--- NOTE | 2018-07-06 10:18 | HP ---
PRIMARY CARE PHYSICIAN: ANGELINE Amos. ENGINEERING INSPECTION ASSISTANT: Dr. Hazel. CODE STATUS: FULL CODE. TIME OF EVALUATION: 10:30 p.m. CHIEF COMPLAINT: Syncope. HISTORY OF PRESENT ILLNESS: This is a 73-year-old female patient with past medical history of hypoth yroidism, hyperlipidemia, hypertension, came to the hospital after having an episode of syncope, she does not remember much of what happened, she reported feeling lightheaded and dizziness and then pass ing out, symptoms were severe, no clear triggers, no alleviating factors. The patient improved by he rself. The patient, of note, has a history of recent surgery with Dr. Grimaldo, and since then has h ad some trouble swallowing, associated with ear pain, weight loss, and dizzy spells. REVIEW OF SYSTEMS: Constitutional: No fever or chills. The patient reported generalized weakness. Respiratory: No cough, sputum production or shortness of breath. Cardiovascular: No chest pain, p alpitations. Gastrointestinal: The patient had difficulty swallowing. No nausea, no vomiting, diar felisa or abdominal pain. 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 No headache or feeling lighthe aded. Genitourinary: No burning on urination. Extremities: No leg swelling. All other systems we re reviewed and negative except for the findings mentioned above. PAST MEDICAL HISTORY: Mentioned in the HPI. PAST SURGICAL HISTORY: The patient has a low back surgery, hemorrhoid surgery, bilateral lower extre mity vein cleanout, cholecystectomy, hysterectomy, herniated disk and fusion in the neck 2 weeks ago. FAMILY HISTORY: Reviewed and noncontributory for current presentation. ALLERGIES: NORCO. REPORTED MEDICATIONS: Amlodipine, atorvastatin, gabapentin, levothyroxine, omeprazole, triamterene, hydrochlorothiazide, gemfibrozil, Klor-Con M20, fish oil, calcium 600, Coenzyme Q10, tramadol, acetam inophen and diazepam. PHYSICAL EXAMINATION: VITAL SIGNS: On presentation, the patient has blood pressure of 102/65 with heart rate 65, respirato ry rate was 18, temperature 98.2, pain 9/10, oxygen saturation 95% on room air. GENERAL APPEARANCE: The patient is alert, oriented, not in any acute distress. HEENT: Eyes, normal conjunctivae. Moist oral mucosa. Anicteric. NECK: No JVD. The patient has a surgical wound from surgery 2 weeks ago on the neck. RESPIRATORY: Bilateral air entry. No rales, no wheezing. Symmetric expansion. CARDIOVASCULAR: Normal rate, regular rhythm. No murmurs, no gallop. No edema. ABDOMEN: Soft. Normal bowel sounds. MUSCULOSKELETAL: Baseline range of motion and strength. No tenderness. SKIN: Warm and intact. No pallor, no rash, no redness. Peripheral pulses are present. Capillary r efill seems to be intact. NEUROLOGIC: Baseline sensory. No evidence of any new focal weakness. Baseline speech. Cranial ner ve seems to be intact. PSYCHIATRIC: The patient is in good mood. No anxiety. Oriented, optimal judgment. IMAGING: EKG as discussed with the performing physician from ER showed left ventricular hypertrophy, left atrial enlargement. The patient was in sinus rhythm at the rate of 78. No evidence of any acu te ischemic findings. Chest x-ray showed no acute cardiopulmonary pathologies. The cervical spine C T shows gas present, possible hematoma. LABORATORY DATA: Labs were reviewed. White count 19.6, hemoglobin 14.7, MCV 89, platelet count 465. D-dimer 2.0. Sodium 139, potassium 3.0, chloride 96, carbon dioxide 28, anion gap 18, BUN 52. Cre atinine 1.7, in previous visit it was 0.8 as per old records that were reviewed. Glucose 115, calciu m 9.7, magnesium 2.5. LFTs were normal. Alkaline phosphatase 153, troponin 0.092. Beta natriuretic peptide 286. ASSESSMENT AND PLAN: The patient will be placed in the hospital with the following medical problems: 1. Episode of syncope, unclear etiology, we will do echo, we will monitor on tele, we will do caroti d Doppler, unclear if this is related to previous surgery 2 weeks ago. 2. Hematoma next to the surgical site seen on the CAT scan, asked for , Neurosurgery, we wi ll follow recommendations. 3. Elevated D-dimer, might be related to surgery. . The patient was given Lovenox, we will d o a VQ scan in the morning. 4. Hypokalemia with potassium 3.0. We will replace electrolytes as needed. 5. Acute kidney injury. The patient has creatinine 1.7 from previous admission was 0.7, we will hyd rate, we will monitor. If not improving, might need Nephrology assistance for this case. 6. Hyperglycemia of 115, the patient had no history of diabetes, we will monitor, no need for any ac du intervention, likely due to acute physical distress. 7. Mildly elevated troponin of 0.092, unclear etiology, rule out acute coronary syndrome, patient al ready received one dose of Lovenox. Second troponin was 0.109, we will consult Cardiology. 8. Hypothyroidism, we will reconcile home medications. Continue hormone replacement. 9. Deep venous thrombosis prophylaxis. The patient was given Lovenox in the ER due to elevated D-di baldo and positive troponin.
[2018-07-06 12:12] VITALS: BMI 22.8
--- NOTE | 2018-07-06 15:56 | PDOC.CTH ---
Cardiology Progress Note - Subjective She is doing better. Still has some dysphagia. - Objective Vital Signs Temp Pulse Resp BP Pulse Ox 07/06/18 11:06 98.9 F 55 L 16 137/63 94 L 07/06/18 07:30 100 07/06/18 07:28 98.0 F 56 L 18 148/71 H 100 Admit Weight 122 lb 7 oz Weight 125 lb 1.6 oz 07/05/18 07/06/18 07/07/18 06:59 06:59 06:59 Intake Total 1170 3380 Output Total 300 1450 Balance 870 1930 - Physical Examination General/Neuro: alert & oriented x3, NAD Neck: no JVD present Lungs: unlabored respirations Heart: RRR Abdomen: NT/ND Extremities: other: (no edema) - Telemetry Telemetry Rhythm: NSR - Labs Result Diagrams: 07/06/18 04:46 07/06/18 04:46 Troponin/CKMB CK-MB (CK-2) 6.0 ng/mL (0-6.6) 07/04/18 20:02 Troponin I 0.069 ng/mL (< 0.028) H 07/05/18 01:56 - Assessment/Plan 1. Syncope 2. Dysphagia from recent cervical instrumentation 3. Likely dehydration from dysphagia 4. PVD,stable 5. Hypokalemia PLAN: - Continue IV hydration. - No new recs. - May need swallow eval. - Replace K.
--- NOTE | 2018-07-06 16:21 | PDOC.PN ---
- Subjective Encounter Start Date: 07/06/18 (\) Encounter Start Time: 08:00 Pt seen for followup re: syncope. Denies chets pain, shortness of breath, fevers or chills. c/o difficulty swallowing some foods. - Objective Resuscitation Status: Resuscitation Status FULL:Full Resuscitation MAR Reviewed: Yes Vital Signs & Weight: Vital Signs (12 hours) Temp Pulse Resp BP Pulse Ox 07/06/18 11:06 98.9 F 55 L 16 137/63 94 L 07/06/18 07:30 100 07/06/18 07:28 98.0 F 56 L 18 148/71 H 100 Weight Admit Weight 122 lb 7 oz Weight 125 lb 1.6 oz I&O: 07/05/18 07/06/18 07/07/18 06:59 06:59 06:59 Intake Total 1170 3380 Output Total 300 1450 Balance 870 1930 Result Diagrams: 07/07/18 04:57 07/07/18 04:57 EKG Reviewed by me: Yes (Tele: NSR) Phys Exam - Physical Examination Constitutional: NAD HEENT: moist MMs Neck: supple Respiratory: clear to auscultation bilateral Cardiovascular: RRR Gastrointestinal: soft Neurological: moves all 4 limbs Psychiatric: normal affect Dx/Plan (1) Syncope Code(s): R55 - SYNCOPE AND COLLAPSE Status: Acute Comment: No recurrence, likely due to dehydration. Continue to monitor on telemetry. No PE on CTA chest. no evidence of urinary infection. Orthostasis+ (2) Hypokalemia Code(s): E87.6 - HYPOKALEMIA Status: Acute Comment: potassium being replaced (3) HTN (hypertension) Code(s): I10 - ESSENTIAL (PRIMARY) HYPERTENSION Status: Chronic Qualifiers: Hypertension type: essential hypertension Qualified Code(s): I10 - Essential (primary) hypertension Comment: controlled (4) Hypothyroidism Code(s): E03.9 - HYPOTHYROIDISM, UNSPECIFIED Status: Chronic Qualifiers: Hypothyroidism type: acquired Qualified Code(s): E03.9 - Hypothyroidism, unspecified Comment: TSH low, check free T3 and free T4 (5) JODI (acute kidney injury) Code(s): N17.9 - ACUTE KIDNEY FAILURE, UNSPECIFIED Status: Resolved - Plan * . Review of Systems - Review of Systems Cardiovascular: negative: chest pain, palpitations, orthopnea, paroxysmal nocturnal dyspnea, edema, light headedness Gastrointestinal: Other (difficulty swallowing food). negative: Nausea, Vomiting, Abdominal Pain, Diarrhea, Constipation, Melena, Hematochezia - Medications/Allergies Allergies/Adverse Reactions: Allergies Allergy/AdvReac Type Severity Reaction Status Date / Time acetaminophen [From [place]] Allergy Verified 07/05/18 00:00 hydrocodone [From [place]] Allergy Verified 07/05/18 00:00 Medications: Current Medications Acetaminophen (Tylenol) 650 mg PO Q4H PRN PRN Reason: Headache/Fever or Pain Last Admin: 07/05/18 15:18 Dose: 650 mg Amlodipine Besylate (Norvasc) 5 mg PO DAILY [facility] Last Admin: 07/06/18 08:14 Dose: 5 mg Atorvastatin Calcium (Lipitor) 10 mg PO HS [facility] Last Admin: 07/05/18 20:13 Dose: 10 mg Calcium/Vitamin D (Caltrate 600 + Vit D) 1 tab PO DAILY [facility] Last Admin: 07/06/18 08:14 Dose: 1 tab Coenzyme Q10 (Coenzyme Q10) 100 mg PO DAILY [facility] Last Admin: 07/06/18 08:15 Dose: 100 mg Docusate Sodium (Colace) 100 mg PO BIDPRN PRN PRN Reason: CONSTIPATION Last Admin: 07/06/18 01:34 Dose: 100 mg Fish Oil (Fish Oil) 1,000 mg PO DAILY [facility] Last Admin: 07/06/18 08:15 Dose: 1,000 mg Gabapentin (Neurontin) 600 mg PO HS [facility] Last Admin: 07/05/18 20:14 Dose: 600 mg Gemfibrozil (Lopid) 600 mg PO BID-AC [facility] Last Admin: 07/06/18 08:14 Dose: 600 mg Sodium Chloride (Normal Saline 0.9%) 1,000 mls @ 75 mls/hr IV .[id number] [facility] Last Admin: 07/06/18 05:50 Dose: 1,000 mls Levothyroxine Sodium (Synthroid) 75 mcg PO 0600 [facility] Last Admin: 07/06/18 05:50 Dose: 75 mcg Losartan Potassium (Cozaar) 25 mg PO DAILY [facility] Last Admin: 07/06/18 08:15 Dose: 25 mg Meclizine HCl (Antivert) 25 mg PO Q8H PRN PRN Reason: Dizziness Last Admin: 07/05/18 17:52 Dose: 25 mg Morphine Sulfate (Morphine) 2 mg SLOW IVP Q6H PRN PRN Reason: Pain IF UNABLE TO TAKE PO Last Admin: 07/06/18 11:02 Dose: 2 mg Ondansetron HCl (Zofran) 4 mg IVP Q6H PRN PRN Reason: Nausea/Vomiting Potassium Chloride (K-Dur) 20 meq PO HS [facility] Last Admin: 07/05/18 20:14 Dose: 20 meq Senna (Senokot) 1 tab PO BID [facility] Sodium Chloride (Flush - Normal Saline) 10 ml IVF PRN PRN PRN Reason: Saline Flush Last Admin: 07/06/18 11:03 Dose: 10 ml Tramadol HCl (Ultram) 50 mg PO BID PRN PRN Reason: Pain 4-6 Last Admin: 07/05/18 15:18 Dose: 50 mg Triamterene/HCTZ (Maxzide-25) 1 tab PO QAM [facility] Last Admin: 07/06/18 08:15 Dose: 1 tab
[2018-07-06] MEDS: Gabapentin 300 MG CAP PO SCH (20:11)
[2018-07-06] MEDS: Atorvastatin Calcium 10 MG TAB PO SCH (20:11)
[2018-07-06] MEDS: Senokot 8.6 MG TAB PO SCH (20:17)
[2018-07-07] MEDS: Levothyroxine Sodium 75 MCG TAB PO SCH (05:09)
[2018-07-07] MEDS: Morphine 2 MG/ML SYRINGE SLOW IVP PRN ×3 (05:09→21:28)
[2018-07-07 05:37] LABS: #Eosinphils 0.2 thou/uL (0.0-0.7); #Lymphocytes 1.9 thou/uL (1.20-3.40); #Monocytes 0.8 thou/uL (0.11-0.59); #Neutrophils 5.4 thou/uL (1.40-6.50); %Basophils 0.3 % (0.0-1.0); %Eosinophils 2.2 % (0.0-10.0); %Lymphocytes 23.2 % (21.0-51.0); %Monocytes 9.1 % (0.0-10.0); %Neutrophils 65.3 % (42.0-75.0); Hemoglobin 11.2 g/dL (12.0-16.0); Mean Corpuscular HGB CONC 31.5 g/dL (32.0-36.0); Mean Corpuscular Hemoglobin 29.3 pg (27.0-31.0); Mean Corpuscular Volume 92.9 fL (78.0-98.0); Mean Platelet Volume 9.1 fL (7.4-10.4); Platelet Count 244 thou/uL (130-400); Red Blood Cell (RBC) Count 3.83 mill/uL (4.20-5.40); White Blood Cell (WBC) Count 8.3 thou/uL (4.8-10.8)
[2018-07-07 05:41] LABS: Anion Gap 11 mmol/L (10-20); BUN (Urea Nitrogen) 7 mg/dL (9.8-20.1); Calc. Creatinine Clearance 71 mL/min (70-130); Calcium 8.6 mg/dL (7.8-10.44); Carbon Dioxide 23 mmol/L (23-31); Chloride 107 mmol/L (98-107); Estimated GFR-MDRD Greater than 90; Glucose 85 mg/dL (83-110); Potassium 3.3 mmol/L (3.5-5.1); Sodium 138 mmol/L (136-145)
[2018-07-07 07:31] LABS: Free T4 (Free Thyroxine) 0.82 ng/dL (0.70-1.48)
[2018-07-07] MEDS: Fish Oil 1,000 MG CAP PO SCH (08:43)
[2018-07-07] MEDS: Gemfibrozil 600 MG TAB PO SCH ×2 (08:43→16:28)
[2018-07-07] MEDS: Ubidecarenone 50 MG CAP PO SCH (08:43)
[2018-07-07] MEDS: Senokot 8.6 MG TAB PO SCH ×2 (08:44→19:42)
[2018-07-07] MEDS: Amlodipine 5 MG TAB PO SCH (08:44)
[2018-07-07] MEDS: Calcium Carbonate + Vit D 1 TAB PO SCH (08:45)
[2018-07-07] MEDS: Losartan 25 MG TAB PO SCH (08:45)
[2018-07-07] MEDS: Triamterene/Hydrochlorothiazide 37.5 mg/25 mg Tablet PO SCH (08:45)
[2018-07-07] MEDS: Sodium Chloride 0.9% 1,000 ML IV SCH ×2 (08:46→19:48)
--- NOTE | 2018-07-07 14:12 | PDOC.PN ---
- Subjective Encounter Start Date: 07/07/18 Encounter Start Time: 08:40 Pt seen for followup re: syncope. Feels better. No nausea or vomiting. - Objective Resuscitation Status: Resuscitation Status FULL:Full Resuscitation Vital Signs & Weight: Vital Signs (12 hours) Temp Pulse Resp BP BP BP Pulse Ox 07/07/18 12:00 97.4 F L 60 16 155/77 H 97 07/07/18 08:44 57 L 195/83 H 07/07/18 08:00 97.6 F 57 L 20 195/83 H 98 07/07/18 03:16 99.2 F 53 L 17 124/57 L 94 L Weight Admit Weight 122 lb 7 oz Weight 129 lb 8 oz I&O: 07/06/18 07/07/18 07/08/18 06:59 06:59 06:59 Intake Total 3380 3542 Output Total 1450 3450 Balance 1930 92 Result Diagrams: 07/07/18 04:57 07/07/18 04:57 Phys Exam - Physical Examination Constitutional: NAD HEENT: moist MMs Neck: supple Respiratory: clear to auscultation bilateral Cardiovascular: RRR Gastrointestinal: soft Neurological: moves all 4 limbs Psychiatric: normal affect Dx/Plan (1) Syncope Code(s): R55 - SYNCOPE AND COLLAPSE Status: Acute Comment: No recurrence, likely due to dehydration. (2) Hypokalemia Code(s): E87.6 - HYPOKALEMIA Status: Acute Comment: replace potassium (3) HTN (hypertension) Code(s): I10 - ESSENTIAL (PRIMARY) HYPERTENSION Status: Chronic Qualifiers: Hypertension type: essential hypertension Qualified Code(s): I10 - Essential (primary) hypertension Comment: controlled (4) Hypothyroidism Code(s): E03.9 - HYPOTHYROIDISM, UNSPECIFIED Status: Chronic Qualifiers: Hypothyroidism type: acquired Qualified Code(s): E03.9 - Hypothyroidism, unspecified Comment: normal free T4, low free T3, recheck in six weeks (5) JODI (acute kidney injury) Code(s): N17.9 - ACUTE KIDNEY FAILURE, UNSPECIFIED Status: Resolved - Plan * . Review of Systems - Review of Systems Respiratory: negative: Cough, Shortness of Breath, SOB with Excertion, Pleuritic Pain, Wheezing Cardiovascular: negative: chest pain, palpitations, orthopnea, paroxysmal nocturnal dyspnea, edema, light headedness - Medications/Allergies Allergies/Adverse Reactions: Allergies Allergy/AdvReac Type Severity Reaction Status Date / Time acetaminophen [From [place]] Allergy Verified 07/05/18 00:00 hydrocodone [From [place]] Allergy Verified 07/05/18 00:00 Medications: Current Medications Acetaminophen (Tylenol) 650 mg PO Q4H PRN PRN Reason: Headache/Fever or Pain Last Admin: 07/05/18 15:18 Dose: 650 mg Amlodipine Besylate (Norvasc) 5 mg PO DAILY [facility] Last Admin: 07/07/18 08:44 Dose: 5 mg Atorvastatin Calcium (Lipitor) 10 mg PO HS [facility] Last Admin: 07/06/18 20:11 Dose: 10 mg Calcium/Vitamin D (Caltrate 600 + Vit D) 1 tab PO DAILY [facility] Last Admin: 07/07/18 08:45 Dose: 1 tab Coenzyme Q10 (Coenzyme Q10) 100 mg PO DAILY [facility] Last Admin: 07/07/18 08:43 Dose: 100 mg Docusate Sodium (Colace) 100 mg PO BIDPRN PRN PRN Reason: CONSTIPATION Last Admin: 07/06/18 01:34 Dose: 100 mg Fish Oil (Fish Oil) 1,000 mg PO DAILY [facility] Last Admin: 07/07/18 08:43 Dose: 1,000 mg Gabapentin (Neurontin) 600 mg PO HS [facility] Last Admin: 07/06/18 20:11 Dose: 600 mg Gemfibrozil (Lopid) 600 mg PO BID-AC [facility] Last Admin: 07/07/18 08:43 Dose: 600 mg Sodium Chloride (Normal Saline 0.9%) 1,000 mls @ 75 mls/hr IV .[id number] [facility] Last Admin: 07/07/18 08:46 Dose: 1,000 mls Levothyroxine Sodium (Synthroid) 75 mcg PO 0600 [facility] Last Admin: 07/07/18 05:09 Dose: 75 mcg Losartan Potassium (Cozaar) 25 mg PO DAILY [facility] Last Admin: 07/07/18 08:45 Dose: 25 mg Meclizine HCl (Antivert) 25 mg PO Q8H PRN PRN Reason: Dizziness Last Admin: 07/05/18 17:52 Dose: 25 mg Morphine Sulfate (Morphine) 2 mg SLOW IVP Q6H PRN PRN Reason: Pain IF UNABLE TO TAKE PO Last Admin: 07/07/18 14:01 Dose: 2 mg Ondansetron HCl (Zofran) 4 mg IVP Q6H PRN PRN Reason: Nausea/Vomiting Potassium Chloride (K-Dur) 20 meq PO HS [facility] Last Admin: 07/06/18 20:11 Dose: 20 meq Senna (Senokot) 1 tab PO BID [facility] Last Admin: 07/07/18 08:44 Dose: 1 tab Sodium Chloride (Flush - Normal Saline) 10 ml IVF PRN PRN PRN Reason: Saline Flush Last Admin: 07/06/18 11:03 Dose: 10 ml Tramadol HCl (Ultram) 50 mg PO BID PRN PRN Reason: Pain 4-6 Last Admin: 07/05/18 15:18 Dose: 50 mg Triamterene/HCTZ (Maxzide-25) 1 tab PO QAM [facility] Last Admin: 07/07/18 08:45 Dose: 1 tab
[2018-07-07] MEDS ORDERED: hydrALAZINE 20 MG/ML VIAL SLOW IVP PRN (14:14)
--- NOTE | 2018-07-07 18:05 | PDOC.CTH ---
Cardiology Progress Note - Subjective She is doing much better today. No chest pain, tightness, pressure, SOB. - Objective Vital Signs Temp Pulse Resp BP BP Pulse Ox 07/07/18 16:00 97.6 F 59 L 18 122/72 97 07/07/18 12:00 97.4 F L 60 16 155/77 H 97 07/07/18 08:44 57 L 195/83 H 07/07/18 08:00 97.6 F 57 L 20 195/83 H 98 Admit Weight 122 lb 7 oz Weight 129 lb 8 oz 07/06/18 07/07/18 07/08/18 06:59 06:59 06:59 Intake Total 3380 3542 2000 Output Total 1450 3450 1600 Balance 1930 92 400 - Physical Examination General/Neuro: alert & oriented x3, NAD Neck: no JVD present Lungs: CTA, unlabored respirations Heart: RRR Abdomen: NT/ND Extremities: other: (no edema) - Telemetry Telemetry Rhythm: NSR - Labs Result Diagrams: 07/07/18 04:57 07/07/18 04:57 Troponin/CKMB CK-MB (CK-2) 6.0 ng/mL (0-6.6) 07/04/18 20:02 Troponin I 0.069 ng/mL (< 0.028) H 07/05/18 01:56 - Assessment/Plan 1. Syncope 2. Dysphagia from recent cervical instrumentation 3. Likely dehydration from dysphagia 4. PVD,stable 5. Hypokalemia 6. Hypothyroidism. PLAN: - Continue IV hydration. - No new recs. - Replace K. - CV stable. - Will sign out. Please call with any questions.
[2018-07-07] MEDS: Atorvastatin Calcium 10 MG TAB PO SCH (19:42)
[2018-07-07] MEDS: Potassium Chloride 20 MEQ TAB PO SCH (19:42)
[2018-07-07] MEDS: Gabapentin 300 MG CAP PO SCH (19:42)
[2018-07-08] MEDS: Levothyroxine Sodium 75 MCG TAB PO SCH (05:15)
[2018-07-08 05:33] LABS: Anion Gap 11 mmol/L (10-20); BUN (Urea Nitrogen) 7 mg/dL (9.8-20.1); Calc. Creatinine Clearance 75 mL/min (70-130); Calcium 8.5 mg/dL (7.8-10.44); Carbon Dioxide 24 mmol/L (23-31); Chloride 106 mmol/L (98-107); Estimated GFR-MDRD Greater than 90; Glucose 88 mg/dL (83-110); Potassium 3.3 mmol/L (3.5-5.1); Sodium 138 mmol/L (136-145)
[2018-07-08 05:38] LABS: #Eosinphils 0.2 thou/uL (0.0-0.7); #Lymphocytes 1.8 thou/uL (1.20-3.40); #Monocytes 0.6 thou/uL (0.11-0.59); #Neutrophils 4.4 thou/uL (1.40-6.50); %Basophils 0.7 % (0.0-1.0); %Eosinophils 2.4 % (0.0-10.0); %Monocytes 8.6 % (0.0-10.0); %Neutrophils 62.4 % (42.0-75.0); Hemoglobin 10.4 g/dL (12.0-16.0); Mean Corpuscular HGB CONC 32.3 g/dL (32.0-36.0); Mean Corpuscular Hemoglobin 29.5 pg (27.0-31.0); Mean Corpuscular Volume 91.2 fL (78.0-98.0); Mean Platelet Volume 9.4 fL (7.4-10.4); Platelet Count 230 thou/uL (130-400); RBC Distribution Width 13.8 % (11.5-14.5); Red Blood Cell (RBC) Count 3.54 mill/uL (4.20-5.40); White Blood Cell (WBC) Count 7.1 thou/uL (4.8-10.8)
[2018-07-08 08:26] VITALS: TEMP 98.1
[2018-07-08] MEDS: Amlodipine 5 MG TAB PO SCH (08:28)
[2018-07-08] MEDS: Gemfibrozil 600 MG TAB PO SCH (08:28)
[2018-07-08] MEDS: Calcium Carbonate + Vit D 1 TAB PO SCH (08:29)
[2018-07-08] MEDS: traMADol HCl 50 MG TAB PO PRN (08:30)
[2018-07-08] MEDS: Losartan 25 MG TAB PO SCH (08:30)
[2018-07-08] MEDS: Ubidecarenone 50 MG CAP PO SCH (08:30)
[2018-07-08] MEDS: Triamterene/Hydrochlorothiazide 37.5 mg/25 mg Tablet PO SCH (08:30)
[2018-07-08] MEDS: Fish Oil 1,000 MG CAP PO SCH (08:30)
[2018-07-08] MEDS: Senokot 8.6 MG TAB PO SCH (08:30)
[2018-07-08] MEDS: Sodium Chloride 0.9% 1,000 ML IV SCH (10:10)
[2018-07-08 12:29] VITALS: BP 152/68
--- NOTE | 2018-07-08 13:55 | DIS ---
DATE OF ADMISSION: 07/04/2018 DATE OF DISCHARGE 07/08/2018. PRIMARY CARE PHYSICIAN: ANGELINE Amos DISCHARGE DIAGNOSES: 1. Syncope. 2. Dehydration. 3. Difficulty swallowing. 4. Hypokalemia. CONDITION OF PATIENT ON THE DAY OF DISCHARGE: Stable. I assessed Ms. Hinojosa on the day of dischar . She denies any chest pain or shortness of breath. She is swallowing better, after diet modifica tions by speech therapist. Vital signs are stable. S1 and S2 are heard, regular. Lungs are clear t o auscultation bilaterally. CONSULTATIONS DURING THIS HOSPITALIZATION: Cardiology, Dr. Hazel. HOSPITAL COURSE: Mr. Hinojosa is a pleasant 73-year-old lady who was admitted to [facility] on 07/04/2018, following a syncopal episode. Please refer to Dr. Akins's history a nd physical note dated 07/04/[address] angiogram of the chest did not reveal any pulmonary embolism. She was seen by Cardiology Service. She had a 2D echocardiogram, which show ed left ventricular ejection fraction of 65%-70%, hyperdynamic left ventricle, grade I/III diastolic dysfunction, no regional wall motion abnormalities, mildly dilated left atrium, elevated LVOT gradien t suggestive of low volume state, mitral annular calcification and moderate mitral regurgitation. Most likely, she became dehydrated because she was having difficulty swallowing following a recent Ne urosurgery. She was seen by speech therapist. Diet modifications were made and she was able to swal low better. She is being discharged home in a stable condition. DISCHARGE MEDICATIONS: Amlodipine 5 mg daily, atorvastatin 10 mg daily, calcium carbonate/vitamin D3 one tablet daily, fish oil 1000 mg daily, gabapentin 600 mg at bedtime, gemfibrozil 600 mg 2 times a day, levothyroxine 75 mcg daily, losartan 25 mg daily, potassium chloride 20 mEq at bedtime, tramado l 50 mg 2 times a day as needed, triamterene/hydrochlorothiazide 37.5/25 mg daily, Coenzyme Q10 of 10 0 mg daily. Many thanks for allowing me to participate in your patient's care. Please feel free to contact me wi th any questions or concerns On the day of discharge, white count of 7100, hemoglobin 10.4, platelet count 230,000. Sodium 138, p otassium 3.3, which is being replaced, and creatinine 0.61. She had a low TSH of 0.1184, but a normal free T4 of 0.82 and decreased free T3 of 1.26. She will ne ed her thyroid profile rechecked in approximately 6 weeks through her primary care provider's office. DISCHARGE DESTINATION: Home. TOTAL AMOUNT OF TIME SPENT COORDINATING THIS DISCHARGE: 33 minutes.
== END 2018-07-08 13:21 | disposition home or self-care (01) | DRG 312 ==
LOC: ERS 19:18 → 2NO 23:08
PROVIDERS: ADMIT Hospitalist; ATTEND Hospitalist
DX: R55 Syncope and collapse (principal); N17.9 Acute kidney failure, unspecified; E03.9 Hypothyroidism, unspecified; E78.5 Hyperlipidemia, unspecified; I10 Essential (primary) hypertension; E87.6 Hypokalemia; R73.9 Hyperglycemia, unspecified; E86.0 Dehydration; R13.10 Dysphagia, unspecified; F17.210 Nicotine dependence, cigarettes, uncomplicated; I25.10 Atherosclerotic heart disease of native coronary artery without angina pectoris; I73.9 Peripheral vascular disease, unspecified; I34.0 Nonrheumatic mitral (valve) insufficiency; G89.29 Other chronic pain; M54.9 Dorsalgia, unspecified; M54.2 Cervicalgia; Z90.49 Acquired absence of other specified parts of digestive tract
CPT/HCPCS: 36415; 36416; 70450; 70490; 71046; 71275; 80048; 80053; 81003; 82533; 82550; 82553; 83690; 83735; 83880; 84439; 84443; 84481; 84484; 85025; 85379; 93005; 93306; 94760; 96361; 96365; 96372; 96375; G8996-GN-CK; G8997-GN-CI; J1650; J2270; J2405; J3010; J3475; J7050

== ENCOUNTER 2018-08-11 13:17 | Outpatient (CLI) | payer MEDICARE ==
--- NOTE | 2018-08-11 14:57 | RAD ---
CERVICAL SPINE THREE VIEWS: HISTORY: A 73-year-old female with a history of S16.1XXA, strain of neck muscle, initial encounter. Follow up surgery. FINDINGS: Anterior cervical fusion changes noted at C4, C5, and C6 with intradiskal prostheses. Disk space kait rowing at C6-C7 with some generalized facet arthrosis. On the AP open-mouth view, the odontoid and C 1 are partially obscured. Possible mild prepatellar soft tissue swelling at approximately C6. IMPRESSION: Anterior metal plate and screws at C4, C5, and C6. Minimal prevertebral soft tissue swelling at C6. Generalized spondylosis. POS: VLADIMIR
== END 2018-08-11 13:18 | disposition home or self-care (01) ==
LOC: TBSIIMAG 13:17
PROVIDERS: ATTEND Neurological Surgery
DX: S16.1XXA Strain of muscle, fascia and tendon at neck level, initial encounter (principal); M47.812 Spondylosis without myelopathy or radiculopathy, cervical region; M79.89 Other specified soft tissue disorders
CPT/HCPCS: 72040

== ENCOUNTER 2019-03-12 09:34 | Outpatient (CLI) | payer MEDICARE ==
--- NOTE | 2019-03-18 10:09 | MMO ---
Bilateral MAMMO Bilat Screen [facility]. CLINICAL HISTORY: Patient is 73 years old and is seen for screening. The patient has no family history of breast cancer. The patient has no personal history of cancer. VIEWS: The views performed were: bilateral craniocaudal with tomosynthesis and bilateral mediolateral oblique with tomosynthesis. FILMS COMPARED: The present examination has been compared to prior imaging studies performed at [facility] on 10/11/2014, 10/16/2015, 10/29/2016 and 11/14/2017. MAMMOGRAM FINDINGS: There are scattered fibroglandular densities. There are no suspicious masses, suspicious calcifications, or new areas of architectural distortion. IMPRESSION: THERE IS NO MAMMOGRAPHIC EVIDENCE OF MALIGNANCY. A ROUTINE FOLLOW-UP MAMMOGRAM IN 1 YEAR IS RECOMMENDED. THE RESULTS OF THIS EXAM WERE SENT TO THE PATIENT. ACR BI-RADS Category 1 - Negative MAMMOGRAPHY NOTE: 1. A negative mammogram report should not delay a biopsy if a dominant of clinically suspicious mass is present. 2. Approximately 10% to 15% of breast cancers are not detected by mammography. 3. Adenosis and dense breasts may obscure an underlying neoplasm.
== END 2019-03-12 09:35 | disposition home or self-care (01) ==
LOC: BICMAMMO 09:34
PROVIDERS: ATTEND Nurse Practitioner Family
DX: Z12.31 Encounter for screening mammogram for malignant neoplasm of breast (principal)
CPT/HCPCS: 77063; 77067

== ENCOUNTER 2020-03-13 10:23 | Outpatient (CLI) | payer MEDICARE ==
--- NOTE | 2020-03-13 12:53 | MMO ---
Bilateral MAMMO Bilat Screen [facility]. CLINICAL HISTORY: Patient is 74 years old and is seen for screening. The patient has no family history of breast cancer. The patient has no personal history of cancer. VIEWS: The views performed were: bilateral craniocaudal with tomosynthesis and bilateral mediolateral oblique with tomosynthesis. FILMS COMPARED: The present examination has been compared to prior imaging studies performed at [facility] on 03/12/2019, and at [facility] on 10/16/2015, 10/29/2016 and 11/14/2017. This study has been interpreted with the assistance of computer-aided detection. MAMMOGRAM FINDINGS: There are scattered fibroglandular densities. There are stable benign appearing calcifications seen in both breasts. There are no suspicious masses, suspicious calcifications, or new areas of architectural distortion. IMPRESSION: THERE IS NO MAMMOGRAPHIC EVIDENCE OF MALIGNANCY. A ROUTINE FOLLOW-UP MAMMOGRAM IN 1 YEAR IS RECOMMENDED. THE RESULTS OF THIS EXAM WERE SENT TO THE PATIENT. ACR BI-RADS Category 2 - Benign finding MAMMOGRAPHY NOTE: 1. A negative mammogram report should not delay a biopsy if a dominant of clinically suspicious mass is present. 2. Approximately 10% to 15% of breast cancers are not detected by mammography. 3. Adenosis and dense breasts may obscure an underlying neoplasm. Reported by: GIDEON ORTA MD Electonically Signed: [id number]
--- NOTE | 2020-03-13 15:19 | BD ---
DEXA BONE DENSITY STUDY: History: Post-menopausal BMD (g/cm2) Left Femoral Neck: 0.659 T-Score: -1.7 Total: 0.900 T-Score: 0.3 Right femoral neck: 0.668 T-Score: -1.6 Total: 0.926 T-Score: -0.1 Impression: 1. Osteopenia of both femoral necks. 2. 10-year fracture risk of a major osteoporotic fracture is 12% and a hip fracture 3.9%. These fract ure probabilities were calculated for an untreated patient. POS: [facility]
== END 2020-03-13 10:24 | disposition home or self-care (01) ==
LOC: BICMAMMO 10:23
PROVIDERS: ATTEND Nurse Practitioner Family
DX: Z12.31 Encounter for screening mammogram for malignant neoplasm of breast (principal); Z13.820 Encounter for screening for osteoporosis; M85.851 Other specified disorders of bone density and structure, right thigh; M85.852 Other specified disorders of bone density and structure, left thigh; Z78.0 Asymptomatic menopausal state
CPT/HCPCS: 77063; 77067; 77080

== ENCOUNTER 2021-01-03 09:16 | Outpatient (CLI) | payer MEDICARE | END 2021-01-03 09:17 | disposition home or self-care (01) | LOC: BICCT 09:16 | PROVIDERS: ATTEND Nurse Practitioner Family | DX: Z12.2 Encounter for screening for malignant neoplasm of respiratory organs (principal); F17.210 Nicotine dependence, cigarettes, uncomplicated | CPT/HCPCS: 71271 ==

== ENCOUNTER 2021-03-21 08:40 | Outpatient (CLI) | payer MEDICARE | END 2021-03-21 08:41 | disposition home or self-care (01) | LOC: BICMAMMO 08:40 | PROVIDERS: ATTEND Nurse Practitioner Family | DX: Z12.31 Encounter for screening mammogram for malignant neoplasm of breast (principal) | CPT/HCPCS: 77063; 77067 ==

== ENCOUNTER 2021-05-31 14:58 | Inpatient (IN) | payer MEDICARE ==
[2021-05-31 16:15] LABS: #Lymphocytes 0.7 thou/uL (1.20-3.40); #Monocytes 0.2 thou/uL (0.11-0.59); %Basophils 0.2 % (0.0-1.0); %Eosinophils 0.2 % (0.0-10.0); %Neutrophils 80.7 % (42.0-75.0); Hemoglobin 12.1 g/dL (12.0-16.0); Mean Corpuscular HGB CONC 35.3 g/dL (32.0-36.0); Mean Corpuscular Hemoglobin 31.8 pg (27.0-31.0); Mean Corpuscular Volume 90.2 fL (78.0-98.0); Mean Platelet Volume 9.8 fL (7.4-10.4); Platelet Count 146 thou/uL (130-400); RBC Distribution Width 12.5 % (11.5-14.5); Red Blood Cell (RBC) Count 3.81 mill/uL (4.20-5.40); White Blood Cell (WBC) Count 4.9 thou/uL (4.8-10.8)
[2021-05-31 16:35] LABS: ALT (SGPT) 23 U/L (8-55); AST (SGOT) 69 U/L (5-34); Albumin 3.6 g/dL (3.4-4.8); Alkaline Phosphatase 118 U/L (40-110); Anion Gap 14 mmol/L (10-20); BUN (Urea Nitrogen) 29 mg/dL (9.8-20.1); Bilirubin, Total 0.3 mg/dL (0.2-1.2); Calc. Creatinine Clearance 0 mL/min (70-130); Calcium 8.2 mg/dL (7.8-10.44); Carbon Dioxide 23 mmol/L (23-31); Chloride 102 mmol/L (98-107); Globulin 2.8 g/dL (2.4-3.5); Glucose 116 mg/dL (83-110); Protein, Total 6.4 g/dL (5.8-8.1); Sodium 136 mmol/L (136-145)
[2021-05-31 16:38] LABS: Potassium 2.9 mmol/L (3.5-5.1)
[2021-05-31 16:58] LABS: CKMB 1.1 ng/mL (0-6.6)
[2021-05-31] MEDS ORDERED: Potassium Chloride 20 MEQ TAB ONE (18:24)
[2021-05-31 20:03] LABS: SARS-CoV-2 NAA Rapid Test DETECTED (NotDetected)
[2021-05-31] MEDS ORDERED: Dexamethasone 10 MG/ML VIAL ONE (20:45)
[2021-05-31 22:26] LABS: Troponin I 0.059 ng/mL (< 0.028)
[2021-05-31] MEDS ORDERED: Ondansetron PF 4 MG/2 ML Vial IVP PRN (23:30)
[2021-05-31] MEDS ORDERED: Ondansetron ODT 4 MG TAB SL PRN (23:30)
[2021-06-01 00:52] VITALS: BMI 21.6
[2021-06-01] MEDS: Acetaminophen 325 MG TAB PO PRN ×2 (01:03→05:35)
[2021-06-01 01:51] LABS: Troponin I 0.038 ng/mL (< 0.028)
[2021-06-01] MEDS ORDERED: Ondansetron PF 4 MG/2 ML Vial IVP PRN (02:42)
[2021-06-01] MEDS ORDERED: Acetaminophen 325 MG TAB PO PRN (02:42)
[2021-06-01 05:27] LABS: #Basophils 0.1 thou/uL (0.0-0.2); #Lymphocytes 0.6 thou/uL (1.20-3.40); #Monocytes 0.2 thou/uL (0.11-0.59); #Neutrophils 2.7 thou/uL (1.40-6.50); %Basophils 1.4 % (0.0-1.0); %Eosinophils 0.1 % (0.0-10.0); %Lymphocytes 17.7 % (21.0-51.0); %Monocytes 4.7 % (0.0-10.0); %Neutrophils 76.2 % (42.0-75.0); Hemoglobin 12.6 g/dL (12.0-16.0); Mean Corpuscular HGB CONC 34.2 g/dL (32.0-36.0); Mean Corpuscular Hemoglobin 30.9 pg (27.0-31.0); Mean Corpuscular Volume 90.4 fL (78.0-98.0); Mean Platelet Volume 10.5 fL (7.4-10.4); Platelet Count 154 thou/uL (130-400); RBC Distribution Width 12.6 % (11.5-14.5); Red Blood Cell (RBC) Count 4.07 mill/uL (4.20-5.40); White Blood Cell (WBC) Count 3.6 thou/uL (4.8-10.8)
[2021-06-01] MEDS ORDERED: Pharmacy to Dose REMDESIVIR IVPB PRN (05:34)
[2021-06-01] MEDS: Levothyroxine Sodium 75 MCG TAB PO SCH (05:36)
[2021-06-01 05:44] LABS: ALT (SGPT) 27 U/L (8-55); AST (SGOT) 70 U/L (5-34); Albumin 3.7 g/dL (3.4-4.8); Alkaline Phosphatase 116 U/L (40-110); Anion Gap 12 mmol/L (10-20); BUN (Urea Nitrogen) 31 mg/dL (9.8-20.1); Bilirubin, Total 0.3 mg/dL (0.2-1.2); CRP (Inflammatory) 3.62 mg/dL (= or < 0.5); Calc. Creatinine Clearance 50 mL/min (70-130); Calcium 8.9 mg/dL (7.8-10.44); Carbon Dioxide 24 mmol/L (23-31); Chloride 105 mmol/L (98-107); Globulin 3.5 g/dL (2.4-3.5); Glucose 148 mg/dL (83-110); Magnesium 1.7 mg/dL (1.6-2.6); Potassium 3.3 mmol/L (3.5-5.1); Protein, Total 7.2 g/dL (5.8-8.1); Sodium 138 mmol/L (136-145)
[2021-06-01] MEDS: Losartan 25 MG TAB PO SCH (07:48)
[2021-06-01] MEDS: Ascorbic Acid 500 mg Chewable Tablet PO SCH (07:48)
[2021-06-01] MEDS: Cholecalciferol 1,000 UNITS (25 MCG) TAB PO SCH (07:48)
[2021-06-01] MEDS: Hydrochlorothiazide 25 MG TAB PO SCH (07:48)
[2021-06-01] MEDS: Zinc Sulfate 220 MG CAP PO SCH (07:48)
[2021-06-01] MEDS: Amlodipine 10 MG TAB PO SCH (07:48)
[2021-06-01] MEDS: Dexamethasone 4 mg/ml Vial SLOW IVP SCH (07:50)
[2021-06-01] MEDS: Enoxaparin Sodium 40 MG/0.4 ML SYRINGE SC SCH ×2 (07:50→22:20)
[2021-06-01] MEDS ORDERED: REMDESIVIR 200 MG in Sodium Chloride 0.9% 250 ML 210 ML IV SCH (08:00)
[2021-06-01] MEDS ORDERED: Enoxaparin Sodium 40 MG/0.4 ML SYRINGE SC SCH (09:00)
[2021-06-01] MEDS ORDERED: Potassium Chloride 20 MEQ TAB PO SCH (09:15)
[2021-06-01] MEDS ORDERED: Electrolyte Replacement Protocol 1 EACH FS SCH (09:15)
[2021-06-01] MEDS ORDERED: Magnesium 2 GM/50 ML 2 GM in Premix Bag 1 BAG IVPB SCH (09:30)
[2021-06-01] MEDS ORDERED: Gabapentin 300 MG CAP PO SCH ×3 (11:00→23:59)
[2021-06-01] MEDS ORDERED: Aspirin 81 mg Enteric Coated Tablet PO SCH (20:00)
[2021-06-01] MEDS: Potassium Chloride 20 MEQ TAB PO SCH (22:18)
[2021-06-02] MEDS: Atorvastatin Calcium 10 MG TAB PO SCH ×2 (00:25→20:34)
[2021-06-02] MEDS: Levothyroxine Sodium 75 MCG TAB PO SCH (05:25)
[2021-06-02 05:29] LABS: #Lymphocytes 1.1 thou/uL (1.20-3.40); #Monocytes 0.5 thou/uL (0.11-0.59); #Neutrophils 10.2 thou/uL (1.40-6.50); %Eosinophils 0.1 % (0.0-10.0); %Monocytes 4.6 % (0.0-10.0); %Neutrophils 86.4 % (42.0-75.0); Hemoglobin 11.9 g/dL (12.0-16.0); Mean Corpuscular HGB CONC 35.3 g/dL (32.0-36.0); Mean Corpuscular Hemoglobin 31.9 pg (27.0-31.0); Mean Corpuscular Volume 90.4 fL (78.0-98.0); Mean Platelet Volume 10.6 fL (7.4-10.4); Platelet Count 171 thou/uL (130-400); RBC Distribution Width 12.5 % (11.5-14.5); Red Blood Cell (RBC) Count 3.71 mill/uL (4.20-5.40); White Blood Cell (WBC) Count 11.8 thou/uL (4.8-10.8)
[2021-06-02 05:55] LABS: ALT (SGPT) 33 U/L (8-55); AST (SGOT) 79 U/L (5-34); Albumin 3.4 g/dL (3.4-4.8); Alkaline Phosphatase 100 U/L (40-110); Anion Gap 14 mmol/L (10-20); BUN (Urea Nitrogen) 33 mg/dL (9.8-20.1); Bilirubin, Total 0.2 mg/dL (0.2-1.2); CRP (Inflammatory) 1.94 mg/dL (= or < 0.5); Calc. Creatinine Clearance 51 mL/min (70-130); Calcium 8.6 mg/dL (7.8-10.44); Carbon Dioxide 24 mmol/L (23-31); Chloride 106 mmol/L (98-107); Glucose 93 mg/dL (83-110); Potassium 3.9 mmol/L (3.5-5.1); Protein, Total 6.4 g/dL (5.8-8.1); Sodium 140 mmol/L (136-145)
[2021-06-02] MEDS ORDERED: Magnesium 2 GM/50 ML 2 GM in Premix Bag 1 BAG IVPB SCH (06:30)
[2021-06-02] MEDS: Aspirin 81 mg Enteric Coated Tablet PO SCH (08:35)
[2021-06-02] MEDS: Cholecalciferol 1,000 UNITS (25 MCG) TAB PO SCH (08:35)
[2021-06-02] MEDS: Losartan 25 MG TAB PO SCH (08:35)
[2021-06-02] MEDS: Ascorbic Acid 500 mg Chewable Tablet PO SCH (08:35)
[2021-06-02] MEDS: Amlodipine 10 MG TAB PO SCH (08:36)
[2021-06-02] MEDS: Zinc Sulfate 220 MG CAP PO SCH (08:36)
[2021-06-02] MEDS: Dexamethasone 4 mg/ml Vial SLOW IVP SCH (08:37)
[2021-06-02] MEDS: Enoxaparin Sodium 40 MG/0.4 ML SYRINGE SC SCH ×2 (08:37→20:35)
[2021-06-02] MEDS: Hydrochlorothiazide 25 MG TAB PO SCH (08:37)
[2021-06-02] MEDS: REMDESIVIR 100 MG in Sodium Chloride 0.9% 250 ML 230 ML IV SCH (09:12)
[2021-06-02] MEDS: Potassium Chloride 20 MEQ TAB PO SCH (20:34)
[2021-06-02] MEDS: Gabapentin 300 MG CAP PO SCH (20:35)
[2021-06-02] MEDS ORDERED: Gabapentin 300 MG CAP PO SCH (21:00)
[2021-06-03 05:21] LABS: #Lymphocytes 0.9 thou/uL (1.20-3.40); #Monocytes 0.5 thou/uL (0.11-0.59); %Basophils 0.1 % (0.0-1.0); %Eosinophils 0.3 % (0.0-10.0); %Lymphocytes 11.9 % (21.0-51.0); %Monocytes 6.6 % (0.0-10.0); %Neutrophils 81.1 % (42.0-75.0); Hemoglobin 12.3 g/dL (12.0-16.0); Mean Corpuscular HGB CONC 35.8 g/dL (32.0-36.0); Mean Corpuscular Hemoglobin 32.4 pg (27.0-31.0); Mean Corpuscular Volume 90.6 fL (78.0-98.0); Mean Platelet Volume 10.3 fL (7.4-10.4); Platelet Count 189 thou/uL (130-400); RBC Distribution Width 12.6 % (11.5-14.5); Red Blood Cell (RBC) Count 3.79 mill/uL (4.20-5.40); White Blood Cell (WBC) Count 7.5 thou/uL (4.8-10.8)
[2021-06-03 05:48] LABS: ALT (SGPT) 47 U/L (8-55); AST (SGOT) 83 U/L (5-34); Albumin 3.4 g/dL (3.4-4.8); Alkaline Phosphatase 106 U/L (40-110); Anion Gap 12 mmol/L (10-20); BUN (Urea Nitrogen) 29 mg/dL (9.8-20.1); Bilirubin, Total 0.3 mg/dL (0.2-1.2); Calc. Creatinine Clearance 55 mL/min (70-130); Calcium 8.6 mg/dL (7.8-10.44); Carbon Dioxide 26 mmol/L (23-31); Chloride 105 mmol/L (98-107); Globulin 3.2 g/dL (2.4-3.5); Glucose 88 mg/dL (83-110); Magnesium 2.1 mg/dL (1.6-2.6); Potassium 3.5 mmol/L (3.5-5.1); Protein, Total 6.6 g/dL (5.8-8.1); Sodium 139 mmol/L (136-145)
[2021-06-03] MEDS: Levothyroxine Sodium 75 MCG TAB PO SCH (06:16)
[2021-06-03] MEDS ORDERED: Potassium Chloride 20 MEQ TAB PO SCH (06:30)
[2021-06-03] MEDS ORDERED: Cepastat Lozenges 1 LOZ PO PRN (06:53)
[2021-06-03] MEDS ORDERED: Ondansetron ODT 4 MG TAB PO PRN (06:53)
[2021-06-03] MEDS ORDERED: GUAIFENESIN SF SOLN 200 MG/10 ML UDCUP PO PRN (06:53)
[2021-06-03] MEDS ORDERED: Loperamide HCl 2 MG CAP PO PRN (06:53)
[2021-06-03] MEDS ORDERED: Loratadine 10 MG TAB PO PRN (06:53)
[2021-06-03] MEDS ORDERED: hydrALAZINE 20 MG/ML VIAL SLOW IVP PRN (06:53)
[2021-06-03] MEDS ORDERED: Sodium Chloride 0.65% Nasal 44 ML BOT EA NARE PRN (06:53)
[2021-06-03] MEDS ORDERED: Bisacodyl 5 MG TAB PO PRN (06:53)
[2021-06-03] MEDS ORDERED: Calcium Carbonate 500 MG ChewTAB PO PRN (06:53)
[2021-06-03] MEDS ORDERED: Senokot S 8.6-50 MG TAB PO PRN (06:53)
[2021-06-03] MEDS ORDERED: Artificial Tear Sol 15 ML BOT EA EYE PRN (06:53)
[2021-06-03] MEDS ORDERED: Hydrocerin (Eucerin) Cream 120 gm Jar TOP PRN (06:53)
[2021-06-03] MEDS ORDERED: Albuterol Sulfate 2.5 mg/3 ml Neb NEB PRN (06:54)
[2021-06-03] MEDS ORDERED: Melatonin 3 MG TAB PO PRN (06:54)
[2021-06-03] MEDS ORDERED: traMADol HCl 50 MG TAB PO PRN ×2 (06:54→07:04)
[2021-06-03] MEDS ORDERED: Albuterol 200 PUFF (6.7GM INHALER) INH PRN (07:00)
[2021-06-03] MEDS: Ascorbic Acid 500 mg Chewable Tablet PO SCH (09:32)
[2021-06-03] MEDS: Fish Oil 1,000 MG CAP PO SCH (09:32)
[2021-06-03] MEDS: Aspirin 81 mg Enteric Coated Tablet PO SCH (09:32)
[2021-06-03] MEDS: Benzonatate 100 MG CAP PO PRN (09:33)
[2021-06-03] MEDS: Hydrochlorothiazide 25 MG TAB PO SCH (09:33)
[2021-06-03] MEDS: Zinc Sulfate 220 MG CAP PO SCH (09:33)
[2021-06-03] MEDS: Cholecalciferol 1,000 UNITS (25 MCG) TAB PO SCH (09:34)
[2021-06-03] MEDS: Losartan 25 MG TAB PO SCH (09:34)
[2021-06-03] MEDS: Enoxaparin Sodium 40 MG/0.4 ML SYRINGE SC SCH ×2 (09:35→20:40)
[2021-06-03] MEDS: REMDESIVIR 100 MG in Sodium Chloride 0.9% 250 ML 230 ML IV SCH (09:35)
[2021-06-03] MEDS: Dexamethasone 4 mg/ml Vial SLOW IVP SCH (09:35)
[2021-06-03] MEDS: Amlodipine 10 MG TAB PO SCH (09:55)
[2021-06-03] MEDS: Gabapentin 300 MG CAP PO SCH (20:41)
[2021-06-03] MEDS: Atorvastatin Calcium 10 MG TAB PO SCH (20:42)
[2021-06-03] MEDS: Potassium Chloride 20 MEQ TAB PO SCH (20:42)
[2021-06-04] MEDS: Levothyroxine Sodium 75 MCG TAB PO SCH (05:16)
[2021-06-04 05:21] LABS: #Lymphocytes 0.8 thou/uL (1.20-3.40); #Monocytes 0.6 thou/uL (0.11-0.59); #Neutrophils 5.9 thou/uL (1.40-6.50); %Basophils 0.3 % (0.0-1.0); %Eosinophils 0.5 % (0.0-10.0); %Lymphocytes 11.3 % (21.0-51.0); %Neutrophils 79.9 % (42.0-75.0); Mean Corpuscular HGB CONC 34.6 g/dL (32.0-36.0); Mean Corpuscular Hemoglobin 31.5 pg (27.0-31.0); Mean Platelet Volume 10.3 fL (7.4-10.4); Platelet Count 222 thou/uL (130-400); RBC Distribution Width 12.5 % (11.5-14.5); Red Blood Cell (RBC) Count 3.81 mill/uL (4.20-5.40); White Blood Cell (WBC) Count 7.4 thou/uL (4.8-10.8)
[2021-06-04 05:44] LABS: ALT (SGPT) 58 U/L (8-55); AST (SGOT) 90 U/L (5-34); Albumin 3.3 g/dL (3.4-4.8); Alkaline Phosphatase 101 U/L (40-110); Anion Gap 13 mmol/L (10-20); BUN (Urea Nitrogen) 23 mg/dL (9.8-20.1); Bilirubin, Total 0.3 mg/dL (0.2-1.2); CRP (Inflammatory) 1.51 mg/dL (= or < 0.5); Calc. Creatinine Clearance 56 mL/min (70-130); Calcium 8.7 mg/dL (7.8-10.44); Carbon Dioxide 27 mmol/L (23-31); Chloride 103 mmol/L (98-107); Glucose 83 mg/dL (83-110); Phosphorus 2.9 mg/dL (2.3-4.7); Potassium 3.9 mmol/L (3.5-5.1); Protein, Total 6.3 g/dL (5.8-8.1); Sodium 139 mmol/L (136-145)
[2021-06-04] MEDS: Ascorbic Acid 500 mg Chewable Tablet PO SCH (09:14)
[2021-06-04] MEDS: Hydrochlorothiazide 25 MG TAB PO SCH (09:15)
[2021-06-04] MEDS: Fish Oil 1,000 MG CAP PO SCH (09:15)
[2021-06-04] MEDS: Benzonatate 100 MG CAP PO PRN (09:15)
[2021-06-04] MEDS: Cholecalciferol 1,000 UNITS (25 MCG) TAB PO SCH (09:15)
[2021-06-04] MEDS: Aspirin 81 mg Enteric Coated Tablet PO SCH (09:15)
[2021-06-04] MEDS: Losartan 25 MG TAB PO SCH (09:16)
[2021-06-04] MEDS: Zinc Sulfate 220 MG CAP PO SCH (09:16)
[2021-06-04] MEDS: Dexamethasone 4 mg/ml Vial SLOW IVP SCH (09:17)
[2021-06-04] MEDS: Enoxaparin Sodium 40 MG/0.4 ML SYRINGE SC SCH ×2 (09:18→20:45)
[2021-06-04] MEDS: REMDESIVIR 100 MG in Sodium Chloride 0.9% 250 ML 230 ML IV SCH (09:18)
[2021-06-04] MEDS: Amlodipine 10 MG TAB PO SCH (10:50)
[2021-06-04] MEDS: Gabapentin 300 MG CAP PO SCH (20:44)
[2021-06-04] MEDS: Potassium Chloride 20 MEQ TAB PO SCH (20:45)
[2021-06-04] MEDS: Atorvastatin Calcium 10 MG TAB PO SCH (20:45)
[2021-06-05] MEDS: Levothyroxine Sodium 75 MCG TAB PO SCH (05:18)
[2021-06-05] MEDS: Cholecalciferol 1,000 UNITS (25 MCG) TAB PO SCH (08:48)
[2021-06-05] MEDS: Benzonatate 100 MG CAP PO PRN (08:48)
[2021-06-05] MEDS: Losartan 25 MG TAB PO SCH (08:49)
[2021-06-05] MEDS: Fish Oil 1,000 MG CAP PO SCH (08:49)
[2021-06-05] MEDS: Aspirin 81 mg Enteric Coated Tablet PO SCH (08:49)
[2021-06-05] MEDS: Zinc Sulfate 220 MG CAP PO SCH (08:49)
[2021-06-05] MEDS: Hydrochlorothiazide 25 MG TAB PO SCH (08:50)
[2021-06-05] MEDS: Enoxaparin Sodium 40 MG/0.4 ML SYRINGE SC SCH ×2 (08:51→20:04)
[2021-06-05] MEDS: Ascorbic Acid 500 mg Chewable Tablet PO SCH (08:51)
[2021-06-05] MEDS: Dexamethasone 4 mg/ml Vial SLOW IVP SCH (08:51)
[2021-06-05] MEDS: REMDESIVIR 100 MG in Sodium Chloride 0.9% 250 ML 230 ML IV SCH (08:53)
[2021-06-05] MEDS: Potassium Chloride 20 MEQ TAB PO SCH (20:03)
[2021-06-05] MEDS: Atorvastatin Calcium 10 MG TAB PO SCH (20:03)
[2021-06-05] MEDS: Gabapentin 300 MG CAP PO SCH (20:03)
[2021-06-06] MEDS: Levothyroxine Sodium 75 MCG TAB PO SCH (05:07)
[2021-06-06] MEDS: Fish Oil 1,000 MG CAP PO SCH (07:56)
[2021-06-06] MEDS: Aspirin 81 mg Enteric Coated Tablet PO SCH (07:57)
[2021-06-06] MEDS: Zinc Sulfate 220 MG CAP PO SCH (07:57)
[2021-06-06] MEDS: Losartan 25 MG TAB PO SCH (07:57)
[2021-06-06] MEDS: Hydrochlorothiazide 25 MG TAB PO SCH (07:58)
[2021-06-06] MEDS: Ascorbic Acid 500 mg Chewable Tablet PO SCH (07:58)
[2021-06-06] MEDS: Cholecalciferol 1,000 UNITS (25 MCG) TAB PO SCH (07:59)
[2021-06-06] MEDS: Dexamethasone 4 mg/ml Vial SLOW IVP SCH (07:59)
[2021-06-06] MEDS: Enoxaparin Sodium 40 MG/0.4 ML SYRINGE SC SCH ×2 (08:00→20:17)
[2021-06-06] MEDS: Benzonatate 100 MG CAP PO PRN (08:01)
[2021-06-06] MEDS: Gabapentin 300 MG CAP PO SCH (20:17)
[2021-06-06] MEDS: Atorvastatin Calcium 10 MG TAB PO SCH (20:17)
[2021-06-06] MEDS: Potassium Chloride 20 MEQ TAB PO SCH (20:18)
[2021-06-07] MEDS: Levothyroxine Sodium 75 MCG TAB PO SCH (05:24)
[2021-06-07] MEDS: Enoxaparin Sodium 40 MG/0.4 ML SYRINGE SC SCH (08:32)
[2021-06-07] MEDS: Ascorbic Acid 500 mg Chewable Tablet PO SCH (08:34)
[2021-06-07] MEDS: Cholecalciferol 1,000 UNITS (25 MCG) TAB PO SCH (08:34)
[2021-06-07] MEDS: Benzonatate 100 MG CAP PO PRN (08:34)
[2021-06-07] MEDS: Hydrochlorothiazide 25 MG TAB PO SCH (08:34)
[2021-06-07] MEDS: Fish Oil 1,000 MG CAP PO SCH (08:35)
[2021-06-07] MEDS: Losartan 25 MG TAB PO SCH (08:35)
[2021-06-07] MEDS: Zinc Sulfate 220 MG CAP PO SCH (08:35)
[2021-06-07] MEDS: Aspirin 81 mg Enteric Coated Tablet PO SCH (08:36)
[2021-06-07 11:46] VITALS: BP 125/65; TEMP 97.9
[2021-06-08] MEDS ORDERED: Dexamethasone 4 MG TAB PO SCH (08:00)
== END 2021-06-07 16:25 | DRG 177 ==
LOC: ERS 14:58 → 2SE 21:23
PROVIDERS: ADMIT Internal Medicine; ATTEND Internal Medicine
PROC: 8E0ZXY6 Isolation (ICD-10-PCS; principal; 2021-05-31)
PROC: XW033E5 Introduction of Remdesivir Anti-infective into Peripheral Vein, Percutaneous Approach, New Technology Group 5 (ICD-10-PCS; 2021-06-01)
DX: U07.1 COVID-19 (principal); J96.01 Acute respiratory failure with hypoxia; J12.82 Pneumonia due to coronavirus disease 2019; I50.32 Chronic diastolic (congestive) heart failure; N17.9 Acute kidney failure, unspecified; E03.9 Hypothyroidism, unspecified; E78.5 Hyperlipidemia, unspecified; I11.0 Hypertensive heart disease with heart failure; F17.210 Nicotine dependence, cigarettes, uncomplicated; I73.9 Peripheral vascular disease, unspecified; E87.6 Hypokalemia; R79.89 Other specified abnormal findings of blood chemistry; Z90.49 Acquired absence of other specified parts of digestive tract; Z90.710 Acquired absence of both cervix and uterus; Z88.5 Allergy status to narcotic agent; Z79.899 Other long term (current) drug therapy
CPT/HCPCS: 0240U; 36415; 36416; 71045; 71275; 80053; 82553; 82728; 83605; 83735; 84100; 84145; 84484; 85025; 85379; 86140; 93005; 93306; 96374; J1100; J1650; J3475; J7050

== ENCOUNTER 2021-07-25 10:41 | Outpatient (CLI) | payer MEDICARE | END 2021-07-25 10:42 | disposition home or self-care (01) | LOC: RAD-FRANK 10:41 | PROVIDERS: ATTEND Nurse Practitioner Family | DX: U07.1 COVID-19 (principal); J18.9 Pneumonia, unspecified organism | CPT/HCPCS: 36415; 71046; 80053; 85025 ==

== ENCOUNTER 2021-08-24 10:33 | Outpatient (CLI) | payer MEDICARE | END 2021-08-24 10:34 | disposition home or self-care (01) | LOC: RAD-FRANK 10:33 | PROVIDERS: ATTEND Nurse Practitioner Family | DX: U07.1 COVID-19 (principal); J12.82 Pneumonia due to coronavirus disease 2019; J44.9 Chronic obstructive pulmonary disease, unspecified; I50.32 Chronic diastolic (congestive) heart failure; R91.8 Other nonspecific abnormal finding of lung field | CPT/HCPCS: 71046 ==

== ENCOUNTER 2022-04-03 08:42 | Outpatient (CLI) | payer MEDICARE | END 2022-04-03 08:43 | disposition home or self-care (01) | LOC: BICMAMMO 08:42 | PROVIDERS: ATTEND Nurse Practitioner Family | DX: Z12.31 Encounter for screening mammogram for malignant neoplasm of breast (principal); Z13.820 Encounter for screening for osteoporosis; Z12.2 Encounter for screening for malignant neoplasm of respiratory organs; J44.9 Chronic obstructive pulmonary disease, unspecified; J84.10 Pulmonary fibrosis, unspecified; M85.851 Other specified disorders of bone density and structure, right thigh; M85.852 Other specified disorders of bone density and structure, left thigh; Z87.891 Personal history of nicotine dependence | CPT/HCPCS: 71271; 77063; 77067; 77080 ==

== ENCOUNTER 2022-04-08 11:22 | Emergency (ER) | payer MEDICARE ==
[2022-04-08 12:46] LABS: #Eosinphils 0.1 thou/uL (0.0-0.7); #Lymphocytes 1.2 thou/uL (1.20-3.40); #Monocytes 0.5 thou/uL (0.11-0.59); #Neutrophils 6.6 thou/uL (1.40-6.50); %Basophils 0.5 % (0.0-1.0); %Eosinophils 0.9 % (0.0-10.0); %Lymphocytes 14.6 % (21.0-51.0); %Monocytes 6.1 % (0.0-10.0); %Neutrophils 77.9 % (42.0-75.0); Hemoglobin 12.7 g/dL (12.0-16.0); Mean Corpuscular HGB CONC 32.4 g/dL (32.0-36.0); Mean Corpuscular Volume 95.7 fL (78.0-98.0); Mean Platelet Volume 9.5 fL (7.4-10.4); Platelet Count 255 thou/uL (130-400); RBC Distribution Width 13.5 % (11.5-14.5); Red Blood Cell (RBC) Count 4.11 mill/uL (4.20-5.40); White Blood Cell (WBC) Count 8.5 thou/uL (4.8-10.8)
[2022-04-08 13:05] LABS: ALT (SGPT) 7 U/L (8-55); AST (SGOT) 18 U/L (5-34); Albumin 3.9 g/dL (3.4-4.8); Alkaline Phosphatase 136 U/L (40-110); Anion Gap 19 mmol/L (10-20); BUN (Urea Nitrogen) 15 mg/dL (9.8-20.1); Bilirubin, Total 0.5 mg/dL (0.2-1.2); Calc. Creatinine Clearance 0 mL/min (70-130); Calcium 9.2 mg/dL (7.8-10.44); Carbon Dioxide 22 mmol/L (23-31); Chloride 105 mmol/L (98-107); Estimated GFR 67; Globulin 3.3 g/dL (2.4-3.5); Glucose 93 mg/dL (83-110); Potassium 3.8 mmol/L (3.5-5.1); Protein, Total 7.2 g/dL (5.8-8.1); Sodium 142 mmol/L (136-145)
[2022-04-08] MEDS ORDERED: traMADol HCl 50 MG TAB ONE (14:22)
== END 2022-04-08 14:29 | disposition home or self-care (01) ==
LOC: ERS 11:22
DX: R55 Syncope and collapse (principal); S06.9X9A Unspecified intracranial injury with loss of consciousness of unspecified duration, initial encounter; S00.03XA Contusion of scalp, initial encounter; E03.9 Hypothyroidism, unspecified; E78.5 Hyperlipidemia, unspecified; I10 Essential (primary) hypertension; F17.210 Nicotine dependence, cigarettes, uncomplicated; Z79.899 Other long term (current) drug therapy; Z79.82 Long term (current) use of aspirin; W18.30XA Fall on same level, unspecified, initial encounter
CPT/HCPCS: 70450; 72125; 80053; 85025; 93005

== ENCOUNTER 2022-04-17 12:53 | Inpatient (IN) | payer MEDICARE ==
[2022-04-17 13:25] LABS: #Basophils 0.1 thou/uL (0.0-0.2); #Eosinphils 0.1 thou/uL (0.0-0.7); #Lymphocytes 2.1 thou/uL (1.20-3.40); #Monocytes 0.6 thou/uL (0.11-0.59); #Neutrophils 5.4 thou/uL (1.40-6.50); %Basophils 1.1 % (0.0-1.0); %Eosinophils 1.5 % (0.0-10.0); %Lymphocytes 25.4 % (21.0-51.0); %Monocytes 7.7 % (0.0-10.0); %Neutrophils 64.4 % (42.0-75.0); Hemoglobin 13.3 g/dL (12.0-16.0); Mean Corpuscular HGB CONC 33.3 g/dL (32.0-36.0); Mean Corpuscular Hemoglobin 31.3 pg (27.0-31.0); Mean Corpuscular Volume 93.9 fL (78.0-98.0); Mean Platelet Volume 9.5 fL (7.4-10.4); Platelet Count 289 thou/uL (130-400); RBC Distribution Width 13.5 % (11.5-14.5); Red Blood Cell (RBC) Count 4.24 mill/uL (4.20-5.40); White Blood Cell (WBC) Count 8.3 thou/uL (4.8-10.8)
[2022-04-17 13:45] LABS: ALT (SGPT) Less than 7 U/L (8-55); AST (SGOT) 17 U/L (5-34); Albumin 4.3 g/dL (3.4-4.8); Alkaline Phosphatase 135 U/L (40-110); Anion Gap 18 mmol/L (10-20); BUN (Urea Nitrogen) 19 mg/dL (9.8-20.1); Bilirubin, Total 0.3 mg/dL (0.2-1.2); Calc. Creatinine Clearance 0 mL/min (70-130); Carbon Dioxide 24 mmol/L (23-31); Chloride 107 mmol/L (98-107); Estimated GFR 69; Globulin 3.5 g/dL (2.4-3.5); Glucose 104 mg/dL (83-110); Potassium 4.1 mmol/L (3.5-5.1); Protein, Total 7.8 g/dL (5.8-8.1); Sodium 145 mmol/L (136-145)
[2022-04-17] MEDS ORDERED: Senokot S 8.6-50 MG TAB PO PRN (14:30)
[2022-04-17] MEDS ORDERED: Metoclopramide HCl 10 MG/2 ML VIAL ONE (14:38)
[2022-04-17] MEDS ORDERED: diphenhydrAMINE 50 MG/ML VIAL ONE (14:39)
[2022-04-17] MEDS ORDERED: hydrALAZINE 20 MG/ML VIAL ONE (14:40)
[2022-04-17 16:55] LABS: Troponin I 0.035 ng/mL (< 0.028)
[2022-04-17] MEDS ORDERED: Acetaminophen 325 MG TAB ONE (18:02)
[2022-04-17 18:47] VITALS: BMI 21.1
[2022-04-17 19:35] LABS: Troponin I 0.022 ng/mL (< 0.028)
[2022-04-17] MEDS ORDERED: Famotidine 20 MG TAB PO SCH (21:00)
[2022-04-17] MEDS: Gabapentin 300 MG CAP PO SCH (21:28)
[2022-04-17] MEDS: Gemfibrozil 600 MG TAB PO SCH (21:28)
[2022-04-18 05:08] LABS: #Eosinphils 0.2 thou/uL (0.0-0.7); #Monocytes 0.6 thou/uL (0.11-0.59); #Neutrophils 3.2 thou/uL (1.40-6.50); %Basophils 0.4 % (0.0-1.0); %Eosinophils 2.7 % (0.0-10.0); %Lymphocytes 33.4 % (21.0-51.0); %Monocytes 9.1 % (0.0-10.0); %Neutrophils 54.3 % (42.0-75.0); Hemoglobin 12.6 g/dL (12.0-16.0); Mean Corpuscular HGB CONC 33.2 g/dL (32.0-36.0); Mean Corpuscular Hemoglobin 31.2 pg (27.0-31.0); Mean Corpuscular Volume 93.8 fL (78.0-98.0); Mean Platelet Volume 9.4 fL (7.4-10.4); Platelet Count 251 thou/uL (130-400); RBC Distribution Width 13.5 % (11.5-14.5); Red Blood Cell (RBC) Count 4.06 mill/uL (4.20-5.40)
[2022-04-18 05:53] LABS: Anion Gap 17 mmol/L (10-20); BUN (Urea Nitrogen) 16 mg/dL (9.8-20.1); Calc. Creatinine Clearance 52 mL/min (70-130); Calcium 9.3 mg/dL (7.8-10.44); Carbon Dioxide 24 mmol/L (23-31); Chloride 107 mmol/L (98-107); Estimated GFR 77; Glucose 89 mg/dL (83-110); Magnesium 1.3 mg/dL (1.6-2.6); Potassium 3.1 mmol/L (3.5-5.1); Sodium 145 mmol/L (136-145)
[2022-04-18 05:54] LABS: Troponin I 0.022 ng/mL (< 0.028)
[2022-04-18] MEDS: Levothyroxine Sodium 75 MCG TAB PO SCH (06:09)
[2022-04-18] MEDS ORDERED: Losartan 25 MG TAB PO SCH (10:30)
[2022-04-18] MEDS: Enoxaparin Sodium 40 MG/0.4 ML SYRINGE SC SCH (10:42)
[2022-04-18] MEDS: Gemfibrozil 600 MG TAB PO SCH ×2 (10:43→20:29)
[2022-04-18] MEDS: Acetaminophen 325 MG TAB PO PRN ×2 (10:44→23:11)
[2022-04-18] MEDS ORDERED: Lidocaine 1% w/Epinephrine 1:100K 20 ML VIAL ONE (14:08)
[2022-04-18] MEDS: hydrALAZINE 20 MG/ML VIAL SLOW IVP PRN ×2 (17:15→23:16)
[2022-04-18] MEDS: Gabapentin 300 MG CAP PO SCH (20:29)
[2022-04-19] MEDS ORDERED: Metoprolol Tartrate 5 MG/5 ML VIAL ONE (03:29)
[2022-04-19] MEDS: Acetaminophen 325 MG TAB PO PRN (03:44)
[2022-04-19] MEDS ORDERED: Metoprolol Tartrate 5 MG/5 ML VIAL IVP SCH ×2 (03:55)
[2022-04-19] MEDS ORDERED: Morphine 2 MG/ML VIAL SLOW IVP PRN ×2 (03:56)
[2022-04-19] MEDS: Levothyroxine Sodium 75 MCG TAB PO SCH (05:59)
[2022-04-19 08:15] VITALS: TEMP 98
[2022-04-19] MEDS ORDERED: Losartan 25 MG TAB PO SCH (09:00)
[2022-04-19] MEDS: Enoxaparin Sodium 40 MG/0.4 ML SYRINGE SC SCH (09:15)
[2022-04-19] MEDS: Gemfibrozil 600 MG TAB PO SCH (09:15)
[2022-04-19 12:22] VITALS: BP 134/66
[2022-04-19] MEDS ORDERED: Apixaban 5 MG TAB PO SCH (21:00)
[2022-04-19] MEDS ORDERED: Flecainide 50 MG TAB PO SCH (21:00)
== END 2022-04-19 14:54 | disposition home or self-care (01) | DRG 261 ==
LOC: ERS 12:53 → ERHOLD 14:28 → 2SW 18:39 → OBSVTOIN 04-18 17:21
PROVIDERS: ADMIT Internal Medicine; ATTEND Internal Medicine
PROC: 0JH602Z Insertion of Monitoring Device into Chest Subcutaneous Tissue and Fascia, Open Approach (ICD-10-PCS; principal; 2022-04-18)
DX: R55 Syncope and collapse (principal); I48.92 Unspecified atrial flutter; I49.5 Sick sinus syndrome; Z20.822 Contact with and (suspected) exposure to COVID-19; E78.5 Hyperlipidemia, unspecified; E03.9 Hypothyroidism, unspecified; K21.9 Gastro-esophageal reflux disease without esophagitis; G25.81 Restless legs syndrome; F17.210 Nicotine dependence, cigarettes, uncomplicated; I11.9 Hypertensive heart disease without heart failure; I73.9 Peripheral vascular disease, unspecified; I48.0 Paroxysmal atrial fibrillation; Z88.5 Allergy status to narcotic agent; Z79.890 Hormone replacement therapy; Z79.899 Other long term (current) drug therapy; Z79.82 Long term (current) use of aspirin; Z90.49 Acquired absence of other specified parts of digestive tract; Z90.710 Acquired absence of both cervix and uterus
CPT/HCPCS: 33285; 36415; 71045; 80048; 80053; 83735; 84443; 84484; 85025; 93005; 93010; 93306; 96365; 96372; 96375; C1764; G0378; J0360; J1200; J1650; J2270; J2765; U0003; U0005

== ENCOUNTER 2023-04-30 07:52 | Outpatient (CLI) | payer MEDICARE | END 2023-04-30 07:53 | disposition home or self-care (01) | LOC: BICMAMMO 07:52 | PROVIDERS: ATTEND Nurse Practitioner Family | DX: Z12.31 Encounter for screening mammogram for malignant neoplasm of breast (principal); Z12.2 Encounter for screening for malignant neoplasm of respiratory organs; F17.218 Nicotine dependence, cigarettes, with other nicotine-induced disorders; N63.10 Unspecified lump in the right breast, unspecified quadrant | CPT/HCPCS: 71271; 77063; 77067 ==

== ENCOUNTER 2023-05-07 09:21 | Outpatient (CLI) | payer MEDICARE | END 2023-05-07 09:22 | disposition home or self-care (01) | LOC: BICMAMMO 09:21 | PROVIDERS: ATTEND Nurse Practitioner Family | DX: R92.8 Other abnormal and inconclusive findings on diagnostic imaging of breast (principal); N63.10 Unspecified lump in the right breast, unspecified quadrant | CPT/HCPCS: 76642; 77065; G0279 ==

== ENCOUNTER 2023-12-03 09:31 | Outpatient (CLI) | payer MEDICARE | END 2023-12-03 09:32 | disposition home or self-care (01) | LOC: BICMAMMO 09:31 | PROVIDERS: ATTEND Nurse Practitioner Family | DX: R92.8 Other abnormal and inconclusive findings on diagnostic imaging of breast (principal); N63.15 Unspecified lump in the right breast, overlapping quadrants | CPT/HCPCS: 76642; 77065; G0279 ==

== ENCOUNTER 2024-06-29 09:25 | Outpatient (CLI) | payer MEDICARE | END 2024-06-29 09:26 | disposition home or self-care (01) | LOC: BICMAMMO 09:25 | PROVIDERS: ATTEND Nurse Practitioner Family | DX: N63.15 Unspecified lump in the right breast, overlapping quadrants (principal) | CPT/HCPCS: 76642; 77066; G0279 ==

== ENCOUNTER → 2024-07-09 | Day surgery (SDC) | payer MEDICARE | LOC: BICULT 12:21 | PROVIDERS: ATTEND Nurse Practitioner Family | PROC: 0HB5XZX Excision of Chest Skin, External Approach, Diagnostic (ICD-10-PCS; principal; 2024-07-09) | DX: N63.10 Unspecified lump in the right breast, unspecified quadrant (principal); R92.8 Other abnormal and inconclusive findings on diagnostic imaging of breast; D36.0 Benign neoplasm of lymph nodes | CPT/HCPCS: 19083; 88305; 88341; 88342 ==

== ENCOUNTER 2024-07-27 08:57 | Outpatient (CLI) | payer MEDICARE ==
[2024-07-27] MEDS ORDERED: Iopamidol 370 76% 100 ML VIAL ONE (09:22)
== END 2024-07-27 08:58 | disposition home or self-care (01) ==
LOC: BICMAMMO 08:57
PROVIDERS: ATTEND Nurse Practitioner Family
DX: Z12.2 Encounter for screening for malignant neoplasm of respiratory organs (principal); Z78.0 Asymptomatic menopausal state; F17.218 Nicotine dependence, cigarettes, with other nicotine-induced disorders; M85.851 Other specified disorders of bone density and structure, right thigh; M85.852 Other specified disorders of bone density and structure, left thigh
CPT/HCPCS: 71271; 77080; Q9967